=== PATIENT | female | born 1950 | race Caucasian/White ===

== ENCOUNTER 2019-01-02 08:27 | Inpatient (IN) ==
--- NOTE | 2019-01-02 09:12 | History & Physical Report ---
Date of Encounter: 01/02/19 Time of Encounter: 09:12 24 Hour HP Update - Instructions Instructions: If the History and Physical is less than 30 days old and was completed prior to A.M. admission and or procedure and has NOT been updated on calendar day of procedure please complete this update prior to performing procedure. - Update Patient reports changes in Medical Condition: No Changes in examination, assessment, or condition: No Changes in Medication: No Preop tests/diagnostics Reviewed: Yes Surgery Remains Indicated: Yes Consent for Planned Operative Procedure(s) Verified: Yes
--- NOTE | 2019-01-02 09:13 | Pre-Sedation Evaluation ---
Pre-sedation evaluation - Pre-sedation checklist Date of procedure: 01/02/19 Procedure: LHC H&P (including ROS) documented in medical record: Yes Previous reaction to sedatives/anesthetics: No Dietary Status: NPO after Midnight Dentition: dentures removed ASA Classification *see protocol: CLASS II-Mild systemic disease Cardiac Registry (Cardio Only) - Functional Capacity Functional Capacity: >=4 METS with symptoms - Clincal Frailty Scale Clinical Frailty Scale: Vulnerable
[2019-01-02] MEDS: 0.9 % Sodium Chloride 1,000 ML IVC SCH ×2 (09:20→21:36)
[2019-01-02] MEDS ORDERED: *HR* Midazolam HCl 2 MG/2 ML VIAL ONE (09:54)
[2019-01-02] MEDS ORDERED: Heparin 1,000 UNITS/500 mL 500 ML ONE (09:54)
[2019-01-02] MEDS ORDERED: *HR* Heparin 10,000 UNIT/10 ML VIAL ONE (09:54)
[2019-01-02] MEDS ORDERED: *HR* FentaNYL (PF) 100 MCG/2 ML VIAL ONE (09:54)
[2019-01-02] MEDS ORDERED: 0.9 % Sodium Chloride 1,000 ML ONE (09:54)
[2019-01-02] MEDS ORDERED: Nitroglycerin 1,000 MCG/10 ML VIAL IV ONE (09:55)
[2019-01-02] MEDS ORDERED: ISOVUE-370 200 ML INFUS..BTL ONE (09:55)
--- NOTE | 2019-01-02 09:55 | Discharge Summary ---
Outpatient Proc Discharge Plan - Plan Instructions: Left Heart Catheterization (DC) Additional Instructions: RISK FACTORS: STOP SMOKING: If you smoke, STOP. Smoking or tobacco use significantly increases your risk of heart disease because nicotine causes the arteries to narrow or constrict. It also causes fats to stick to the artery. Your chances of having a heart attack are greatly increased if you continue to smoke. For more information, call the education line for smoking cessation 3-042-DEORODM EAT A LOW FAT/CHOLESTEROL/SODIUM DIET: This diet may help reduce your chances of having a heart attack. LIFTING: Avoid lifting anything more than 10 pounds for 5-7 days Prior to straining, laughing, sneezing and/or coughing, apply manual pressure directly over insertion site. ACTIVITY: You may walk or climb stairs as tolerated You can resume sexual activity as tolerated In general, you are encouraged to engage in a minimum of 30 minutes or more of moderate intensity physical activity, such as brisk walking, daily or at least 3-4 times weekly BATHING Do not submerge the site into water (bath tub, hot tub, swimming pool) for 1 week. This can be a source for infection into the blood stream. You may shower after 24 hours SITE CARE: After 24 hours, you may remove the dressing and leave the site open to air. Keep the site clean and dry. Clean gently and pat dry. You can expect bruising and tenderness that gradually resolve within a week or two. Return to work as instructed per your physician Resume driving as instructed per physician Keep all scheduled follow up appointments Resume medications as instructed IMPORTANT: If prescribed a Platelet Aggregation Inhibitor such as, Plavix, Brilinta or Effient: Duration of therapy is minimum one year These medications are often used in combination with Aspirin in prevention of future heart attacks Never discontinue unless consult with your Road Mixer Operator STROKE (CVA) Risk factors for a stroke are: Age, cigarette smoking, diabetes, excessive alcohol consumption, family history, high blood pressure, overweight, physical inactivity, prior stroke, heart attack, diagnosis of carotid artery stenosis or other artery disease. Warning signs: Sudden numbness or weakness of the face, arm or leg; especially on one side of the body, sudden confusion, trouble speaking or understanding, sudden trouble seeing in one or both eyes, sudden trouble walking, dizziness, loss of balance or coordination, sudden severe headache with no cause. Call 911 or go to the Emergency Room. CONGESTIVE HEART FAILURE: If you have been diagnosed with Congestive Heart Failure (CHF) and your symptoms return, make an appointment with your physician Weigh yourself daily. Notify your physician if you have a weight gain of two or more pounds in one day or five or more pounds in one week. If you experience any difficulty breathing, please call 911 BLEEDING: Although the risk of bleeding is minimal, it can happen. If you have any bleeding from the site, apply firm pressure above the puncture site for 10-15 minutes. If the bleeding does not stop, continue manual pressure and call 911 Contact your physician if: You develop a fever greater than 101 degrees Fahrenheit Your site becomes reddened or has any drainage You have an increase in pain or burning at the site or if a large knot forms at the site. If you experience chest pain, shortness of breath, dizziness, or extreme tiredness, stop the activity and rest. Please notify your physicians office if you experience any of these symptoms and they are not relieved by rest please call 911! Home Medications: Aspirin 81 mg PO DAILY 04/28/17 [History] Esomeprazole Magnesium [Nexium] 40 mg PO DAILY 04/28/17 [History] Losartan Potassium [Cozaar] 50 mg PO DAILY 04/28/17 [History] Metoprolol [Lopressor] 25 mg PO BID 01/02/19 [History] Pravastatin Sodium [Pravachol] 40 mg PO DAILY 01/02/19 [History] Rosuvastatin [Crestor] 20 mg PO DAILY 01/02/19 [History] Tizanidine HCl [Zanaflex] 4 mg PO HS 01/02/19 [History]
--- NOTE | 2019-01-02 12:39 | Cardiothoracic Consult Note ---
Date of Encounter: 01/02/19 Time of Encounter: 13:25 Assessment and Plan (1) Unstable angina Current Visit: Yes Status: Acute The patient is a 68-year-old hypertensive lady with hypercholesterolemia who has had exertional substernal chest pain radiating to her neck and shoulders for the last several weeks. She underwent an exercise stress test which reproduced the symptoms early in the exercise portion. She was recommended for cardiac catheterization which she underwent today. This study revealed severe 3 vessel CAD and an LVEF 60%. In particular, the patient has a 70% proximal LAD lesion, a 95% mid LAD lesion, a 70% distal LAD lesion, a 70% distal LCx lesion, a 90% proximal OM1 lesion, a 90% proximal ramus intermediate branch lesion, and a 70% proximal RCA lesion. She has been recommended for CABG. I concur with this recommendation. The STS risk calculator reveals an operative mortality risk 1.1%, renal failure risk 0.62%, permanent stroke risk 1.38%, deep sternal wound infection risk 0.15%, and reoperation risk 1.6%. The patient understands the procedure, benefits, alternatives, and risks, and gives her informed consent. We will proceed with CABG on 01/03/2019. The assessment and plan as outlined above was discussed with the patient and/or family members who expressed understanding and agreement. All questions were answered. - History of Present Illness Consult date: 01/02/19 Requesting physician: Radha Ku Consult reason: CABG evaluation Chief complaint: Substernal chest pain History of present illness: Ms. Mark is a 68 year old hypertensive lady with hypercholesterolemia who was admitted to [facility] today for elective cardiac catheteri zation. She states that she began experiencing symptoms 6 months ago when she was mowing her lawn. At that time she had exertional, nonradiating substernal chest pain and shortness of breath with this activity. Recently, she has experienced exertional substernal chest pain radiating to her neck and shoulder regions, occasionally has had rest angina. She underwent an [facility] and had similar symptoms at 3 minutes 30 seconds. The ECG revealed [address] depression in leads 2, 3, aVF, and precordial leads V3 through V6. The patient was recommended for cardiac catheterization. The patient underwent cardiac catheterization today was found to have severe 3 vessel CAD and an LVEF 60%. In particular, the patient has a 70% proximal LAD lesion, a 95% mid LAD lesion, a 70% distal LAD lesion, a 70% distal LCx lesion, a 90% proximal OM1 lesion, a 90% proximal ramus intermediate branch lesion, and a 70% proximal RCA lesion. She has been recommended for CABG. Past Med Surg Social Fam HX - Past Medical History Medical history: COPD, coronary artery disease, GERD, hyperlipidemia, hypertension, other Additional medical history: endometriosis Psychiatric history: anxiety, depression - Past Surgical History Surgical History: appendectomy, hysterectomy, other (Right carpal tunnel release, laparoscopy with endometriosis fulgaration) Additional surgical history: colonoscopy - Social History Smoking Status: Never smoker Alcohol use: none Drug use: none Occupational status: retired Current living situation: Home - Independent Activity Level: Independent ambulation, Very active Recent Out of Country Travel Within the Last 8 Weeks: No Exposure or Possible Exposure to Illness During Travel: No Medications and Allergies Aspirin 81 mg PO DAILY 04/28/17 [History] Esomeprazole Magnesium [Nexium] 40 mg PO DAILY 04/28/17 [History] Losartan Potassium [Cozaar] 50 mg PO DAILY 04/28/17 [History] Metoprolol [Lopressor] 25 mg PO BID 01/02/19 [History] Pravastatin Sodium [Pravachol] 40 mg PO DAILY 01/02/19 [History] Rosuvastatin [Crestor] 20 mg PO DAILY 01/02/19 [History] Tizanidine HCl [Zanaflex] 4 mg PO HS 01/02/19 [History] Allergy/AdvReac Type Severity Reaction Status Date / Time magnesium Allergy See Verified 04/28/17 07:16 Comments All Systems Review: The remainder of the systems were reviewed and are negative Physical Examination Vital Signs, Last 4 Hours Temp Pulse Resp BP Pulse Ox 01/02/19 09:10 97.6 F 58 18 141/73 96 General: Conversant, No Apparent Distress HEENT: Atraumatic, Normocephaly, Trachea midline Neck: No JVD, Normal carotid pulses Cardiac: Reg Rate and Rhythm, Normal S1 and S2, No Murmur Lungs: Normal Breath Sounds, No Wheeze, Rales, Rhonchi Neuro: Alert and responsive, No focal deficits noted, Motor nerves intact, Sensory nerves intact Vascular: Normal capillary refill Abdomen: Soft, Non-tender Skin: No rashes noted on visualized skin Musculoskeletal: No Chest Wall Tenderness Extremities: No Clubbing, No Cyanosis, No Edema Consult Discharge Plan - Plan Instructions: Left Heart Catheterization (DC) Additional Instructions: RISK FACTORS: STOP SMOKING: If you smoke, STOP. Smoking or tobacco use significantly increases your risk of heart disease because nicotine causes the arteries to narrow or constrict. It also causes fats to stick to the artery. Your chances of having a heart attack are greatly increased if you continue to smoke. For more information, call the education line for smoking cessation 6-143-DVFHUFN EAT A LOW FAT/CHOLESTEROL/SODIUM DIET: This diet may help reduce your chances of having a heart attack. LIFTING: Avoid lifting anything more than 10 pounds for 5-7 days Prior to straining, laughing, sneezing and/or coughing, apply manual pressure directly over insertion site. ACTIVITY: You may walk or climb stairs as tolerated You can resume sexual activity as tolerated In general, you are encouraged to engage in a minimum of 30 minutes or more of moderate intensity physical activity, such as brisk walking, daily or at least 3-4 times weekly BATHING Do not submerge the site into water (bath tub, hot tub, swimming pool) for 1 w [place]. This can be a source for infection into the blood stream. You may shower after 24 hours SITE CARE: After 24 hours, you may remove the dressing and leave the site open to air. Keep the site clean and dry. Clean gently and pat dry. You can expect bruising and tenderness that gradually resolve within a week or two. Return to work as instructed per your physician Resume driving as instructed per physician Keep all scheduled follow up appointments Resume medications as instructed IMPORTANT: If prescribed a Platelet Aggregation Inhibitor such as, Plavix, Brilinta or Effient: Duration of therapy is minimum one year These medications are often used in combination with Aspirin in prevention of future heart attacks Never discontinue unless consult with your Finance Associate STROKE (CVA) Risk factors for a stroke are: Age, cigarette smoking, diabetes, excessive alcohol consumption, family history, high blood pressure, overweight, physical inactivity, prior stroke, heart attack, diagnosis of carotid artery stenosis or other artery disease. Warning signs: Sudden numbness or weakness of the face, arm or leg; especially on one side of the body, sudden confusion, trouble speaking or understanding, sudden trouble seeing in one or both eyes, sudden trouble walking, dizziness, loss of balance or coordination, sudden severe headache with no cause. Call 911 or go to the Emergency Room. CONGESTIVE HEART FAILURE: If you have been diagnosed with Congestive Heart Failure (CHF) and your symptoms return, make an appointment with your physician Weigh yourself daily. Notify your physician if you have a weight gain of two or more pounds in one day or five or more pounds in one week. If you experience any difficulty breathing, please call 911 BLEEDING: Although the risk of bleeding is minimal, it can happen. If you have any bleeding from the site, apply firm pressure above the puncture site for 10-15 minutes. If the bleeding does not stop, continue manual pressure and call 911 Contact your physician if: You develop a fever greater than 101 degrees Fahrenheit Your site becomes reddened or has any drainage You have an increase in pain or burning at the site or if a large knot forms at the site. If you experience chest pain, shortness of breath, dizziness, or extreme tiredness, stop the activity and rest. Please notify your physicians office if you experience any of these symptoms and they are not relieved by rest please call 911! Referrals: Skip Mathur MD [Primary Care Provider] -
[2019-01-02] MEDS ORDERED: CeFAZolin Premix DUPLEX 2,000 MG/50 ML BAG IVPB ONE (13:49)
--- NOTE | 2019-01-02 15:29 | Invasive Diagnostic Lab Proc ---
Name: Toma Mark Date of Study: 01/02/2019 Date: 1950 Ht: 67.0in Medical Record#: [id number] Age: 68 Wt: 181.88lb Gender: Female BSA: 1.94 Order #: [id number] BMI: 28.48 Physicians Procedure Physician: Radha Ku MD Referring MD: Skip Mathur MD Referring MD: Staff Name Position Time In Maeve Cruz RN Pneumatic Jack Operator 10:16 AM Erik Tomlinson RN Monitor 10:16 AM Jeannie Jack RT Scrub 10:16 AM Indications Indication Abnormal Test - Stress Procedures Performed Procedure L HRT ARTERY/VENTRICLE ANGIO Pre-Procedure Checklist Informed consent is complete signed and on chart. H&P is on chart. ID band is on and ID verified with patient. Patient NPO for procedure The procedure was described for the patient and questions were answered. Blood Pressure: 141/73 ECG is on chart. Rhythm: Sinus Bradycardia Plan of Care Patient will tolerate the procedure without complications. Adequate level of comfort will be maintained. Hemodynamics will remain stable Patient will recover from procedure without complications. Respiratory function will be maintained. Cardiac rhythm will remain stable. Patient temperature will be maintained. Patient and/or family have verbalized understanding of the procedure. Patient Education Chief Complaint/Reason for Test: Cardiac Cath Developmental Category: Geriatric (65+ years) Developmentally Appropriate for Age: Yes Learning Barriers: None Education Needs: Procedure Education Method: Verbal Information Taught: Cardiac Cath Educational Evaluation: Able to repeat information Intravenous Access Time IV Size Location DC'd Fluid/Drip Rate Units RN 09:09 AM Started with 20g 1 1/4" Rt Wrist 0.9NaCl 50 ml/hr Britta Issa RN Allergies magnesium Vital Signs Time BP (mmHg) HR (bpm) O2 Sat. RR (bpm) LOC 09:02 AM 141 / 73 58 96 % 18 5 = Fully awake and oriented or at pre-proc level 10:17 AM / % 5 = Fully awake and oriented or at pre-proc level 10:17 AM / % 4 = Oriented but drowsy 10:32 AM / % 4 = Oriented but drowsy 10:47 AM / % 4 = Oriented but drowsy 10:15 AM 164 / 81 61 98 % 32 10:19 AM 124 / 62 56 93 % 14 10:24 AM 132 / 67 55 94 % 15 10:29 AM 142 / 75 61 94 % 30 10:34 AM 126 / 60 61 90 % 38 10:39 AM 134 / 64 67 92 % 19 10:44 AM 130 / 62 61 96 % 40 10:49 AM 131 / 62 63 97 % 25 10:55 AM 146 / 72 57 100 % 25 10:59 AM 132 / 67 54 99 % 16 11:04 AM 122 / 68 55 98 % 17 11:14 AM 151 / 74 53 100 % 16 5 = Fully awake and oriented or at pre-proc level 11:30 AM 140 / 79 52 99 % 16 5 = Fully awake and oriented or at pre-proc level 12:00 PM 145 / 74 56 97 % 16 5 = Fully awake and oriented or at pre-proc level 12:35 PM 149 / 80 60 97 % 16 5 = Fully awake and oriented or at pre-proc level 01:03 PM 130 / 94 52 97 % 16 5 = Fully awake and oriented or at pre-proc level 01:13 PM 160 / 79 61 99 % 18 5 = Fully awake and oriented or at pre-proc level 01:45 PM 168 / 77 57 99 % 18 5 = Fully awake and oriented or at pre-proc level 02:00 PM 155 / 83 76 99 % 16 5 = Fully awake and oriented or at pre-proc level Procedural Medications Time Medication Dose Units Method Given By 10:16 AM Oxygen 2 L/min nasal cannula Maeve Cruz RN 10:17 AM Versed 1 mg Intravenous Maeve Cruz RN 10:17 AM Fentanyl 50 mcg Intravenous Maeve Cruz RN 10:24 AM Lidocaine 2% 19 ml Subcutaneous Radha Ku MD 10:29 AM Nitroglycerin 150 mcg Intracoronary Gideon Ku MD 10:31 AM Nitroglycerin 100 mcg Intracoronary Gideon Ku MD 10:33 AM Nitroglycerin 100 mcg Intracoronary Gideon Ku MD 10:35 AM Heparin 1000 units Intravenous Maeve Cruz RN 10:43 AM Nitroglycerin 200 mcg Intracoronary Gideon Ku MD ASA Classification: CLASS II- Mild systemic disease (i.e. well-controlled diabetes, hypertension, asthma, cigarette smoking) Turner Score Preprocedure Postprocedure Activity 2- Moves 4 extremities sustained head lift Activity 2- Moves 4 extremities sustained head lift Circulation 2- SBP +/= 20 points of pre-anesthetic level Circulation 2- SBP +/= 20 points of pre-anesthetic level Consciousness 2- Awake and alert oriented x 3 Consciousness 2- Awake and alert oriented x 3 O2 Saturation 2- Able to maintain O2 satruation of 92% on room air O2 Saturation 2- Able to maintain O2 satruation of 92% on room air Respiratory 2- Able to deep breathe and cough well Respiratory 2- Able to deep breathe and cough well Total Score 10 Total Score 10 Contrast Agent: Isovue Diagnostic Contrast: 116 ml Total Contrast: 116 ml Fluoro Dose: 7152 mGy Procedure Log Time Note Enter By 10:13 AM Vitals capture started with the following parameters, Patient=Adult, Interval=5 min, Initial Eclggwey=855 mmHg, Deflation Rate=5 mmHg, Cuff placed on Right Arm 10:13 AM Case Start 10:13 AM CathStat 10:14 AM Pt arrived to director geophysical laboratory 2 at 10:14 cedwards 10:14 AM Patient charges- Angio tray pack, Navilyst 3mm J, Pulse Oximetry and ACIST tubing and transducer cedwards 10:14 AM IV Supplies used: J loop Angio Cath. cedwards 10:14 AM Physician arrived 10:14 cedwards 10:14 AM ASA Class CLASS II- Mild systemic disease (i.e. well-controlled diabetes, hypertension, asthma, cigarette smoking) cedwards 10:14 AM Meet and greet completed cedwards 10:14 AM Sign in performed according to hospital policy. Informed consent was obtained. cedwards 10:14 AM Procedure start 10:14 cedwards 10:15 AM HR=61 bpm, WMRK=066/81 mmhg, SpO2=98.0 %, Resp=32 B/min 10:16 AM Time: 10:16 Oxygen on at 2 L/min per nasal cannula by Maeve Cruz RN cedwards 10:16 AM Maeve Cruz RN Position: Pneumatic Jack Operator Time in: 10:16 cedwards 10:16 AM Erik Tomlinson RN Position: Monitor Time in: 10:16 cedwards 10:16 AM Jeannie Jack RT Position: Scrub Time in: 10:16 cedwards 10:16 AM Time: 10:16 Patient comfortable and pain free: Yes cedwards 10:17 AM Time: 10:17LOC: 5 = Fully awake and oriented or at pre-proc level cedwards 10:17 AM Time: : Versed 1 mg Intravenous Given by Maeve Cruz RN cedwards 10: AM Time: 10: Fentanyl 50 mcg Intravenous Given by Maeve Cruz RN cedwards 10: AM Recorded ECG: HR=55 Condition=Condition 1 10:17 AM Recorded ECG: HR=55 Condition=Condition 1 10:18 AM Hair removed from procedure site in holding area using clippers. Bilateral groin prepped with Chloraprep by Erik Tomlinson RN, then patient was draped. Skin intact. cedwards 10:19 AM HR=56 bpm, VDFE=103/62 mmhg, SpO2=93.0 %, Resp=14 B/min, EtCO2=40 mmHg, Comment=NSR 10:24 AM Clinical Presentation: Unstable angina cedwards 10:24 AM Time out was performed according to hospital policy. Conscious sedation and anesthesia was achieved (see medication log with in this report above) cedwards 10:24 AM HR=55 bpm, HEZU=131/67 mmhg, SpO2=94.0 %, Resp=15 B/min, EtCO2=35 mmHg, Comment=NSR 10: AM Time: : 19 ml Lidocaine 2% to right groin Subcutaneous Given by Radha Ku MD cedwards 10:25 AM Micro-Introducer Kit utilized for sheath placement cedwards 10:26 AM Access obtained by percutaneous puncture. 6Fr 10cm Terumo [place] sheath placed in right Femoral artery. [id number] cedwards 10:26 AM 5Fr FR 4 catheter inserted over the wire [facility] cedwards 10:26 AM 0.035 145cm Navilyst 3mmJ wire [id number] cedwards 10:28 AM Recorded Pressure: Ao, HR=57, Condition=Condition 1 (Aorta) Ao 142/66/95 10:28 AM RCA angiography performed in multiple views. cedwards 10:28 AM Recorded Pressure: Ao, HR=60, Condition=Condition 1 (Aorta) Ao 71/33/48 10:29 AM HR=61 bpm, JFLS=339/75 mmhg, SpO2=94.0 %, Resp=30 B/min, EtCO2=40 mmHg 10: AM Time: : Nitroglycerin 150 mcg Intracoronary Given by Gideon Ku MD cedwards 10:31 AM Time: 10:31 Nitroglycerin 100 mcg Intracoronary Given by Gideon Ku MD cedwards 10:32 AM Time: 10:16 Patient comfortable and pain free: Yes cedwards 10:32 AM Time: 10:17LOC: 4 = Oriented but drowsy cedwards 10:33 AM Time: 10:33 Nitroglycerin 100 mcg Intracoronary Given by Gideon Ku MD ced[place] 10:33 AM Catheter removed cedwards 10:34 AM 5Fr FL 4 catheter inserted over the wire [facility] cedwards 10:34 AM HR=61 bpm, AVNJ=091/60 mmhg, SpO2=90.0 %, Resp=38 B/min 10:35 AM Recorded Pressure: Ao, HR=64, Condition=Condition 1 (Aorta) Ao 129/68/95 10:36 AM Time: 10:35 Heparin 1000 units Intravenous Given by Maeve Cruz RN cedwards 10:36 AM LCA angiography performed in multiple views. cedwards 10:37 AM Recorded Pressure: Ao, HR=51, Condition=Condition 1 (Aorta) Ao 127/71/95 10:38 AM Catheter removed cedwards 10:38 AM Coronary Dominance: right cedwards 10:38 AM 5Fr Pigtail catheter inserted over the wire [facility] cedwards 10:39 AM Catheter crossed the aortic valve and was selectively placed in the left ventricle. Pressures recorded on pullback for left heart catheterization. cedwards 10:39 AM HR=67 bpm, KBAR=177/64 mmhg, SpO2=92.0 %, Resp=19 B/min 10:39 AM Bolus angiogram of left Ventricle complete: 10 ml/sec for a total of 20 mls cedwards 10:40 AM Recorded Pressure: LV, HR=70, Condition=Condition 1 (Left Ventricle) LV 153/27/22 10:40 AM Recorded Pressure: LV, Ao, HR=62, Condition=Condition 1 (Left Ventricle) LV 128/20/26, (Aorta) Ao 118/6/64 10:41 AM Catheter removed cedwards 10:41 AM 5Fr SRC catheter inserted over the wire [id number] cedwards 10:42 AM Recorded Pressure: Ao, HR=65, Condition=Condition 1 (Aorta) Ao 127/72/97 10:43 AM Time: 10:43 Nitroglycerin 200 mcg Intracoronary Given by Gideon Ku MD cedwards 10:44 AM HR=61 bpm, THMX=604/62 mmhg, SpO2=96.0 %, Resp=40 B/min 10:47 AM Time: 10:32LOC: 4 = Oriented but drowsy cedwards 10:47 AM Time: 10:32 Patient comfortable and pain free: Yes cedwards 10:49 AM HR=63 bpm, BHGW=290/62 mmhg, SpO2=97.0 %, Resp=25 B/min, EtCO2=35 mmHg, Comment=NSR 10:[address] Shay paged for CABG consult cedwards 10:50 AM Lesion found in Proximal RCA. Pre Stenosis: 70 Pre JEZ Flow: 3: Complete and Brisk Flow/Perfusion cedwards 10:51 AM Lesion found in Proximal LAD. Pre Stenosis: 70 Pre JEZ Flow: 3: Complete and Brisk Flow/Perfusion cedwards 10:51 AM Lesion found in Mid LAD. Pre Stenosis: 95 Pre JEZ Flow: 3: Complete and Brisk Flow/Perfusion cedwards 10:51 AM Lesion found in Distal LAD. Pre Stenosis: 70 Pre JEZ Flow: 3: Complete and Brisk Flow/Perfusion cedwards 10:52 AM Lesion found in Distal Circumflex. Pre Stenosis: 70 Pre JEZ Flow: 3: Complete and Brisk Flow/Perfusion cedwards 10:52 AM Lesion found in 1st Marginal. Pre Stenosis: 90 Pre JEZ Flow: 3: Complete and Brisk Flow/Perfusion cedwards 10:52 AM Lesion found in Ramus. Pre Stenosis: 90 Pre JEZ Flow: 3: Complete and Brisk Flow/Perfusion cedwards 10:55 AM HR=57 bpm, YGXT=081/72 mmhg, SdP3=991.0 %, Resp=25 B/min, Comment=NSR 10:55 AM Catheter removed cedwards 10:56 AM Procedure completed at 10:56 01/02/2019 cedwards 10:56 AM Did you address JEZ flow and Dominance? Yes cedwards 10:56 AM Sign out completed: Radiation Dose 679.62 mGy, 7151.90 cGy/cm2 Fluoro Time: 6.8 Isovue 370 - 200ml contrast 116 ml given by Radha Ku MD. Complications: None. The patient was discharged out of the rd lab technician in stable condition. Cardiac Rehab Consult needed: YesConfirmed administered medications: Yes cedwards 10:56 AM Isovue 370 - 200ml,1 Bottle(s) used. cedwards 10:57 AM Arterial sheath pulled, Mynx closure device used and was Successful [id number] S/N. cedwards 10:57 AM Estimated Blood Loss: minimal cedwards 10:57 AM Post ECG NSR cedwards 10:57 AM Post Blood Pressure 146/72 cedwards 10:57 AM Information taught Cardiac Cath and Mynx cedwards 10:57 AM Education needs Plan of Care, Procedure, and Disease Process cedwards 10:57 AM Learning barriers :None cedwards 10:57 AM Education Methods Verbal cedwards 10:57 AM Education evaluation Able to repeat information cedwards 10:57 AM Site status No bleeding/hematoma - Rt Groin as reported by Gideon Ku MD at 10:57 cedwards 10:57 AM Opsite applied cedwards 10:57 AM Plavix, Effient or Brilinta given No cedwards 10:59 AM HR=54 bpm, LYSB=458/67 mmhg, SpO2=99.0 %, Resp=16 B/min, Comment=NSR 11:02 AM Time: 10:47 Patient comfortable and pain free: Yes cedwards 11:02 AM Time: 10:47LOC: 4 = Oriented but drowsy cedwards 11:[address] Shay in lab viewing films discussing with Dr. Ku cedwards 11:03 AM Family placed in consult room. cedwards 11:03 AM Complications: None cedwards 11:04 AM HR=55 bpm, BBMD=403/68 mmhg, SpO2=98.0 %, Resp=17 B/min, Comment=NSR 11:06 AM Report given to Madelyn COLBY Pt taken to Holding room Room #3. 11:06 cedwards 11:16 AM checked into HR 3, family at bedside [email or web address] 01:[address] shay at bedside [email or web address] 01:47 PM Patient ambulated with assistance to BR. Insertion site without bleeding or hematoma. Pulses unchanged. [email or web address] 02:26 PM Activity: 2 Circulation: 2 Consciousness: 2 O2 Saturation: 2 Respiration: 2 [email or web address] 02:26 PM Report given to Rosemary COLBY Pt taken to Room #38. 14:26 [email or web address] 02:26 PM LASHA Limon at bedside doing open heart education [email or web address] 03:23 PM pt taken to 3B via wheelchair by Erik, RN and LASHA Salazar [email or web address] Complications Complication None None Hemodynamics Pressures Site Systolic/A Wave Diastolic/V Wave Mean AO 142 66 95 AO 71 33 48 AO 129 68 95 AO 127 71 95 LV 153 27 22 LV 128 20 26 AO 118 6 64 AO 127 72 97 Post Procedure Information Blood Pressure: 146/72 mmHg Rhythm: NSR Post procedural instructions were given Surgery consult for CABG Closure Device Time Device Success/Fail 01/02/2019 11:12:00 AM MynxGrip Successful Site Checks Time Location Status Staff Sheath In? Note 10:57 AM Rt Groin No bleeding/hematoma Gideon Ku MD 11:14 AM Rt Groin No bleeding/ No Hematoma Alyssa Mathews RN 11:30 AM Rt Groin No bleeding/ No Hematoma Britta Issa RN 12:00 PM Rt Groin No bleeding/ No Hematoma Alyssa Mathews RN 12:35 PM Rt Groin No bleeding/ No Hematoma Britta Issa RN 01:03 PM Rt Groin No bleeding/ No Hematoma Alyssa Mathews RN 01:13 PM Rt Groin No bleeding/ No Hematoma Britta Issa RN 01:45 PM Rt Groin No bleeding/ No Hematoma Britta Issa RN 02:00 PM Rt Groin No bleeding/ No Hematoma Alyssa Mathews RN Pulses Time Site Pre-Procedure Post-Procedure Note 01/02/2019 9:06:00 AM Bilateral DP & PT 2+ 01/02/2019 9:06:00 AM Bilateral radial 2+ 01/02/2019 12:09:00 PM Bilateral DP & PT 2+ 01/02/2019 12:35:00 PM Bilateral DP & PT 2+ Updated by Alyssa Mathews RN on 01/02/2019 3:23:23 PM electronically signed on 01/02/2019 3:24:05 PM with status of Final
[2019-01-02 16:52] LABS: Chol/HDL Ratio 3.1 (0-4.9)
[2019-01-02 16:56] LABS: Estimated Average Glucose 123 mg/dl; Hemoglobin A1C 5.9 %
[2019-01-02] MEDS: Chlorhexidine Rinse 15 ML MOUTHWASH MM SCH (21:29)
[2019-01-03] MEDS: Nitroglycerin 0.4 MG TAB.SUBL SL PRN ×2 (01:37→01:43)
[2019-01-03] MEDS ORDERED: Aspirin 81 MG TAB.CHEW PO ONE (06:00)
[2019-01-03] MEDS: Chlorhexidine Rinse 15 ML MOUTHWASH MM SCH (06:07)
[2019-01-03] MEDS ORDERED: Nitroglycerin 25 MG/250 ML INFUS..BTL IVC ONE (06:50)
[2019-01-03] MEDS ORDERED: *HR* FentaNYL (PF) 1,000 MCG/20 ML VIAL ONE (06:52)
[2019-01-03] MEDS ORDERED: *HR* Midazolam HCl 5 MG/5 ML VIAL IVP ONE (06:52)
[2019-01-03] MEDS ORDERED: *HR* Propofol 200 MG/20 ML VIAL IVP ONE (06:52)
[2019-01-03] MEDS ORDERED: *HR* EPINEPHrine 1 MG/ML AMPUL ONE (06:54)
[2019-01-03] MEDS ORDERED: *HR* PHENYLEPHRINE 1,000 MCG/10 ML SYRINGE IVP ONE (06:54)
[2019-01-03] MEDS ORDERED: Famotidine 20 MG/2 ML VIAL ONE (06:54)
[2019-01-03] MEDS ORDERED: *HR* Magnesium Sulfate 1 GM/2 ML VIAL ONE (06:54)
[2019-01-03] MEDS ORDERED: Lidocaine 2% Syringe 100 MG/5 ML ONE (07:02)
[2019-01-03] MEDS ORDERED: Dexamethasone 4 MG/ML VIAL ONE (07:02)
--- NOTE | 2019-01-03 07:17 | Anesthesia Evaluation PreOp ---
Date of Encounter: 01/03/19 Time of Encounter: 07:23 - Past History Planned Operation: CABG Cardiac History: HTN, Hyperlipidemia, Other (CAD) Pulmonary History: Other (chronic cough with unknown etiology) BOAT TESTER History: Denies Any Significant HX Other Medical History: Denies Any Significant HX Anesthesia History: Past Anesthesia (apy, hysterectomy) : No Alcohol Use: none Drug use: none Medications and Allergies Aspirin 81 mg PO DAILY 04/28/17 [History] Esomeprazole Magnesium [Nexium] 40 mg PO DAILY 04/28/17 [History] Losartan Potassium [Cozaar] 50 mg PO DAILY 04/28/17 [History] Metoprolol [Lopressor] 25 mg PO BID 01/02/19 [History] Pravastatin Sodium [Pravachol] 40 mg PO DAILY 01/02/19 [History] Rosuvastatin [Crestor] 20 mg PO DAILY 01/02/19 [History] Tizanidine HCl [Zanaflex] 4 mg PO HS 01/02/19 [History] Allergy/AdvReac Type Severity Reaction Status Date / Time magnesium Allergy See Verified 04/28/17 07:16 Comments - Meds/Allergy Pre-op Review Medications Reviewed: Yes Allergies Reviewed: Yes Beta Blockers on Current Med List: Yes (metoprolol) If Beta Blockers taken, Date/Time (Last Dose taken): 604 Anesthesia Results - Labs Laboratory Tests 12/30/18 12/30/18 12/30/18 16:56 16:56 16:56 WBC 9.1 Hgb 14.5 Hct 43.9 Plt Count 370 PT 10.8 INR 1.0 Sodium 137 Potassium 3.9 Chloride 99 Carbon Dioxide 25 BUN 13 Creatinine 0.82 Est GFR (Non-Af Amer) > 60 Hemoglobin A1c 01/02/19 16:18 WBC Hgb Hct Plt Count PT INR Sodium Potassium Chloride Carbon Dioxide BUN Creatinine Est GFR (Non-Af Amer) Hemoglobin A1c 5.9 H - Imaging EKG: report reviewed Additional studies: [facility] 01/02/2019 severe 3 vessel CAD and an LVEF 60%. In particular, the patient has a 70% proximal LAD lesion, a 95% mid LAD lesion, a 70% distal LAD lesion, a 70% distal LCx lesion, a 90% proximal OM1 lesion, a 90% proximal ramus intermediate branch lesion, and a 70% proximal RCA lesion. PFT 08/2018 Adequate for Interpretation Spirometry shows moderate airway restrictive disease. If clinically indicated to confirm restriction full lung volumes and diffusion to be done at a later date. Lung Volumes SVC is moderately reduced. Flow Volume Loop: Normal. Anesthesia Exam Vital Signs/O2 Sat/Glucose, Most Recent Temp Pulse Resp BP Pulse Ox 98.1 F 62 16 150/74 96 01/03/19 06:55 01/03/19 06:55 01/03/19 06:55 01/03/19 06:55 01/03/19 06:55 NPO (# of Hours): > 8 hr - HEENT Pupil (Motor): Pupils equal Mallampati: III Teeth: Missing (full top), Prosthesis (metal lower teeth) Oral Opening: Greater than 3 - BOAT TESTER LOC: Oriented BOAT TESTER Motor: Normal RUE, Normal LUE, Normal RLE, Normal LLE, Normal Face BOAT TESTER Sensory: Normal: RUE, LUE, RLE, LLE, Face - Cardiac Rhythm: Regular Murmur: None - Pulmonary Breath Sounds: bilateral Clear Respiratory Effort: Symmetrical Anesthesia Assess/Plan ASA Score: 4 Level of consciousness: Cooperative, Oriented Anesthetic Plan: General Monitoring Plan: Standard Monitors, A-Line, PAC, DANNY Recovery Plan: ICU
[2019-01-03] MEDS ORDERED: Dextrose 50 % in Water (Vial) 30 ML, Sodium Bicarbonate 20 MEQ, Lidocaine 1% 5 ML, Insu... TH ONE ×2 (07:45→17:45)
[2019-01-03] MEDS ORDERED: Dextrose 50 % in Water (Vial) 30 ML, Sodium Bicarbonate 20 MEQ, Potassium Chloride 15 M... TH ONE (07:45)
[2019-01-03] MEDS ORDERED: Heparin 15,000 UNIT in 0.9 % Sodium Chloride 500 ML IV ONE (07:45)
[2019-01-03] MEDS ORDERED: Insulin Human Regular 100 UNIT in 0.9 % Sodium Chloride 100 ML IV PRN (07:45)
[2019-01-03] MEDS ORDERED: Norepinephrine 4 MG in D5% in Water 250 ML IVC PRN (07:45)
[2019-01-03] MEDS ORDERED: *HR* Phenylephrine 10 MG/ML VIAL IVC ONE (08:16)
[2019-01-03] MEDS ORDERED: Lidocaine 2% Syringe 100 MG/5 ML IV ONE (08:16)
[2019-01-03] MEDS ORDERED: *HR* Heparin 10,000 UNIT/10 ML VIAL IV ONE (08:16)
[2019-01-03] MEDS ORDERED: Tranexamic Acid 1,000 MG/10 ML VIAL IVPB ONE (08:16)
[2019-01-03] MEDS ORDERED: Mannitol 25% vial 12.5 GM/50 ML VIAL IVP ONE (08:16)
[2019-01-03] MEDS ORDERED: Albumin Human 25% 25 GM/100 ML IV.SOLN IV ONE (08:16)
[2019-01-03 08:21] LABS: ABG Base Excess -2 mEq/L (-2 to 3); ABG Chloride 107 mEq/L (98-107); ABG Glucose 106 mg/dL (60-95); ABG HCO3 25 mEq/L (21-27); ABG Ionized Calcium 1.24 mmol/L (1.15-1.35); ABG Oxygen Saturation 100 % (95-98); ABG PCO2 46 mmHg (35-45); ABG PH 7.34 pH Units (7.32-7.45); ABG PO2 276 mmHg (85-104); ABG TCO2 26 mEq/L (20-26)
[2019-01-03] MEDS ORDERED: Albumin Human 5% 50.0 GM/1,000 ML VIAL ONE (08:40)
[2019-01-03] MEDS ORDERED: *HR* Rocuronium Bromide 50 MG/5 ML VIAL ONE ×3 (09:14→11:31)
[2019-01-03 09:15] LABS: ABG Base Excess -3 mEq/L (-2 to 3); ABG Chloride 108 mEq/L (98-107); ABG Glucose 109 mg/dL (60-95); ABG HCO3 22 mEq/L (21-27); ABG Ionized Calcium 1.19 mmol/L (1.15-1.35); ABG Oxygen Saturation 100 % (95-98); ABG PCO2 36 mmHg (35-45); ABG PH 7.38 pH Units (7.32-7.45); ABG PO2 278 mmHg (85-104); ABG TCO2 23 mEq/L (20-26)
[2019-01-03] MEDS ORDERED: Protamine Sulfate 250 MG/25 ML VIAL IVP ONE (09:28)
--- NOTE | 2019-01-03 09:32 | Anesthesia Procedures ---
Date of Encounter: 01/03/19 Time of Encounter: 07:50 Procedures: Anesthesia - Arterial Line Consent obtained: written consent Time out performed: Yes Sedation: Versed (mg): 3 Sedation: Fentanyl (mcg): 50 Local Anesthetic: Lidocaine 1% Size (Gauge): 20 Length (inches): 1 3/4 Technique Used: sterile prep, direct puncture technique Post-Procedure: line taped into place, dry sterile dressing placed Patient tolerated procedure: well, no complications Complications: none Site: Radial L Vitals: see anesthesia chart - Central Line Placement Right IJ Consent obtained: written consent Time out performed: Yes Patient placed on monitor/pulse ox: Yes Supplemental Oxygen via Nasal Cannula (L/min): 6 (through ETT) MD prep: mask, gown, gloves Central line prep: Chlorhexidine scrub Ultrasound used for placement: Yes Technique: Seldinger Lumen Inserted: single Size / Length: 9 Fr / 10 cm Post procedure: sutured in place, good blood return, sterile dressing applied Patient tolerated procedure: well, no complications Complications: none Vitals: see anesthesia chart Comments: PAC inserted with pressure waveform analysis. Secured at 45 cm
[2019-01-03 10:13] LABS: ABG Base Excess -2 mEq/L (-2 to 3); ABG Chloride 102 mEq/L (98-107); ABG Glucose 176 mg/dL (60-95); ABG HCO3 23 mEq/L (21-27); ABG Ionized Calcium 0.97 mmol/L (1.15-1.35); ABG Oxygen Saturation 100 % (95-98); ABG PCO2 40 mmHg (35-45); ABG PH 7.37 pH Units (7.32-7.45); ABG PO2 621 mmHg (85-104); ABG TCO2 24 mEq/L (20-26)
[2019-01-03] MEDS ORDERED: Protamine Sulfate 50 MG/5 ML VIAL IVP ONE (10:58)
[2019-01-03 11:07] LABS: ABG Base Excess 0 mEq/L (-2 to 3); ABG Chloride 104 mEq/L (98-107); ABG Glucose 142 mg/dL (60-95); ABG HCO3 24 mEq/L (21-27); ABG Ionized Calcium 1.24 mmol/L (1.15-1.35); ABG Oxygen Saturation 100 % (95-98); ABG PCO2 36 mmHg (35-45); ABG PH 7.44 pH Units (7.32-7.45); ABG PO2 585 mmHg (85-104); ABG TCO2 25 mEq/L (20-26)
[2019-01-03] MEDS ORDERED: *HR* FentaNYL (PF) 250 MCG/5 ML VIAL ONE (11:31)
[2019-01-03 11:56] LABS: ABG Base Excess 0 mEq/L (-2 to 3); ABG Chloride 103 mEq/L (98-107); ABG Glucose 138 mg/dL (60-95); ABG HCO3 24 mEq/L (21-27); ABG Ionized Calcium 1.04 mmol/L (1.15-1.35); ABG Oxygen Saturation 100 % (95-98); ABG PCO2 38 mmHg (35-45); ABG PH 7.41 pH Units (7.32-7.45); ABG PO2 310 mmHg (85-104); ABG TCO2 26 mEq/L (20-26)
--- NOTE | 2019-01-03 12:01 | Operative Note ---
Date of procedure: 01/03/19 Pre-op diagnosis: CAD Post-op diagnosis: same Procedure: 1. CABG5 (CORCORAN to LAD, SVG to D1, sequential SVG to ramus intermediate branch and then OM1, SVG to distal RCA). 2. Endoscopic vein harvesting, greater saphenous vein from left lower extremity. Implants: None. Complications: None. Anesthesia: GETA Surgeon: Samantha Shay Was there an diversional therapist's assistant present: Yes Guitar Technician: Vikram Zendejas Estimated blood loss (cc): 500 Specimen: None. Condition: stable Disposition: ICU Procedure in Detail: INDICATIONS FOR OPERATION: The patient is a 68 year old hypertensive lady with hypercholesterolemia who was admitted to [facility] today for elective cardiac catheterization. She states that she began experiencing symptoms 6 months ago when she was mowing her lawn. At that time she had exertional, nonradiating substernal chest pain and shortness of breath with this activity. Recently, she has experienced exertional substernal chest pain radiating to her neck and shoulder regions, occasionally has had rest angina. She underwent an exercise stress test at [facility] and had similar symptoms at 3 minutes 30 seconds. The ECG revealed [address] depression in leads 2, 3, aVF, and precordial leads V3 through V6. The patient was recommended for cardiac catheterization. The patient underwent cardiac catheterization today was found to have severe 3 vessel CAD and an LVEF 60%. In particular, the patient has a 70% proximal LAD lesion, a 95% mid LAD lesion, a 70% distal LAD lesion, a 70% distal LCx lesion, a 90% proximal OM1 lesion, a 90% proximal ramus intermediate branch lesion, and a 70% proximal RCA lesion. She has been recommended for CABG. FINDINGS AT OPERATION: The aorta was of normal caliber without calcification. The coronary arteries measure approximately 1.5 mm in diameter and had mild distal disease, except the distal LAD which was small and diffusely diseased. The greater saphenous vein w as harvested endoscopically from the left lower extremity from the mid-calf to the groin and was of good quality. The total bypass time was 108 minutes, cross-clamp time 59 minutes, intentional hypothermia of 34.1 degrees centigrade. DESCRIPTION OF OPERATION: After obtaining informed operative consent from the patient, she was taken to the operating room where a satisfactory general endotracheal anesthetic was induced. Appropriate monitor lines placed, and the patient's chest, abdomen, and lower extremities were prepped and draped in a sterile fashion. The greater saphenous vein was harvested endoscopically from the left lower extremity from the mid calf to the groin. The vein was removed, distended, and found to be of good quality. The subcutaneous tissue and skin edges were reapproximated using running Vicryl sutures. Simultaneously, a standard median sternotomy incision was made and the sternum divided. The CORCORAN was taken down from its bed and side branches divided between hemoclips. The sternum was and the pericardium opened and reflected laterally. The patient was prepared for cannulation by placing pursestring sutures the distal ascending aorta, mid-ascending aorta, and right atrial appendage. The patient was heparinized and when he used to is greater than 200 seconds, the distal ascending aorta was cannulated followed by placement of a dual stage venous cannula through the right atrial appendage and into the inferior vena cava. A stab-in antegrade metabolic annual was placed in the mid- ascending aorta. The patient was placed on bypass and the temperature allowed to drift to 34.1 degrees centigrade. The distal targets were identified and the aorta was crossclamped. She received 700 mL of cold antegrade crystalloid cardioplegia through the aortic root and the patient's heart obtained rapid diastolic arrest. The distal RCA was opened be blade and the vein was anastomosed in an end-to-side fashion using running 7-0 Prolene suture. The anastomosis found to be hemostatic. This process was then repeated for the D1 branch. The anastomosis found to be hemostatic and the patient received a notice of cold ant egrade crystalloid cardioplegia through the aortic root. The OM1 branch was opened with a [place] blade and the vein was anastomosed in an end-to-side fashion using running 7-0 Prolene suture. The anastomosis found to be hemostatic. The D1 branch was opened be blade and the vein was opened longitudinal fashion so the [id number] anastomosis could be completed using running 7-0 Prolene suture. The anastomosis was found to be hemostatic and the patient received a final dose of cold antegrade crystalloid cardioplegia through the aortic root. The LAD was opened be blade and the CORCORAN was anastomosed in an end-to-side fashion to the LAD using running 7-0 Prolene suture. The anastomosis was found to be hemostatic and the mammary pedicle was tacked to the epicardium using interrupted 5-0 silk suture. Rewarming was begun during this anastomosis. Cross-clamp was released and the heart distended. The veins were measured and cut appropriate lengths. A partial occluding clamps placed across the mid- ascending aorta and the antegrade cardioplegia cannula was removed. Two additional aortotomy sites were made 11 blade and all 3 sites were enlarged with 4 mm punch. The veins were anastomosed in end-to-side fashion to the aorta using a running 5-0 Prolene suture. The vein grafts were occluded with bulldog clamps and de-aired the 25-gauge needle prior to the partial occluding clamp. The proximal and distal anastomoses were found to be hemostatic and the proximal anastomoses were marked with radiopaque loops. Two right ventricular temporary epicardial pacing lesion placed, and 3 chest suture placed, 2 in the mediastinum and one into the left pleural space. During rewarming the patient's heart rhythm deteriorated to ventricular fibrillation and she required a single 10 J direct-current shock and heart regained normal sinus rhythm. When the patient's systemic temperature reached 36 degrees centigrade she was ventilated and received volume. She was weaned from bypass and required no inotropic support. The pericardium was loosely approximated over the aorta; however, could not be reapproximated over the right ventricle due to excessive tension. The sternum was reapproximated using sternal wires. 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 This was not replaced as the remaining sternum was stable. The pectoralis major fascia, rectus abdominis fascia, subcutaneous tissue, and skin edges were reapproximated running Vicryl sutures. A negative pressure sterile dressing was applied to the sternotomy incision. The patient was transferred to the ICU in satisfactory postoperative condition. There were no intraoperative complications, and the instrument, needle, and sponge count were correct at the end of operation. - Open Heart Detail DELMIS (Internal Mammary Artery) Usage: Yes Cardiopulmonary Bypass Time (mins): 108 Aortic Cross Clamp Time (mins): 59 Intentional Hypothermia Temperature (C.): 34.1
[2019-01-03] MEDS ORDERED: Potassium Chloride 40 MEQ/200 ML BAG IVPB PRN (12:32)
[2019-01-03] MEDS ORDERED: *HR* Dextrose 50 % in Water (Syg) 50 ML SYRINGE IVP PRN (12:32)
[2019-01-03] MEDS ORDERED: Insulin Regular, Human 100 UNIT/ML IV PRN (12:32)
[2019-01-03] MEDS ORDERED: Naloxone 0.4 MG/ML INJ IVP PRN (12:33)
[2019-01-03] MEDS ORDERED: Ondansetron 4 MG/2 ML VIAL IVP PRN (12:33)
[2019-01-03] MEDS ORDERED: Acetaminophen 325 MG TABLET PO PRN (12:33)
[2019-01-03] MEDS ORDERED: Calcium Chloride 1,000 MG in 0.9 % Sodium Chloride 100 ML IVPB PRN (12:33)
[2019-01-03] MEDS ORDERED: Acetaminophen 650 MG RECTAL SUPP RC PRN (12:33)
[2019-01-03] MEDS ORDERED: Pantoprazole 40 MG VIAL IVP SCH (12:45)
[2019-01-03] MEDS ORDERED: Insulin Human Regular 100 UNIT in 0.9 % Sodium Chloride 100 ML IVC SCH (12:45)
[2019-01-03] MEDS ORDERED: Norepinephrine 4 MG in D5% in Water 250 ML IVC SCH (12:45)
[2019-01-03 12:55] LABS: ABG Base Excess 1 mEq/L (-2 to 3); ABG HCO3 24 mEq/L (21-27); ABG Oxygen Saturation 99 % (95-98); ABG PCO2 32 mmHg (35-45); ABG PH 7.49 pH Units (7.32-7.45); ABG PO2 103 mmHg (85-104); ABG TCO2 25 mEq/L (20-26); Blood Gas Modality VC; Blood Gas PEEP 5 cm H2O; Blood Gas Respiration Rate 10; Blood Gas VT 600 cc
[2019-01-03 13:04] LABS: Basophils % 0.2 %; Eosinophils # 0.2 K/mcL (0.0-0.6); Eosinophils % 0.8 %; Hematocrit 33.9 % (35.3-44.9); Immature Granulocytes % 0.7 % (0-4); Lymphocytes # 1.2 K/mcL (0.6-4.6); Lymphocytes % 5.9 %; Mean Corpuscular HGB Conc 33.9 g/dL (31.6-35.5); Mean Corpuscular Hemoglobin 29.9 pg (28.0-33.3); Mean Corpuscular Volume 88.3 fL (83.0-100.0); Mean Platelet Volume 10.2 fL (9.4-12.4); Monocytes % 6.1 %; Neutrophils # 17.6 K/mcL (1.6-8.9); Platelet Count 180 K/mcL (140-400); Red Blood Count 3.84 M/mcL (3.82-4.97); Segmented Neutrophils % 86.3 %
[2019-01-03 13:06] LABS: Hemoglobin 11.5 g/dL (11.5-15.4); Monocytes # 1.2 K/mcL (0.0-1.3)
[2019-01-03 13:18] LABS: BUN/Creatinine Ratio 15 (6-26); Blood Urea Nitrogen 10 mg/dL (8-23); Calcium 7.7 mg/dL (8.6-10.3); Carbon Dioxide 24 mEq/L (23-29); Chloride 108 mEq/L (98-107); Glucose 141 mg/dL (70-105); Osmolality,Calculated 287 (280-300); Potassium 3.7 mEq/L (3.5-5.1); Sodium 138 mEq/L (136-145); eGFR For Non-African Americans > 60 (> 60)
[2019-01-03 13:22] LABS: INR 1.2
[2019-01-03 13:24] LABS: Activated Partial Thrombo Time 31.6 Seconds (26.0-36.0)
[2019-01-03] MEDS: *HR* FentaNYL (PF) 100 MCG/2 ML VIAL IVP PRN ×6 (13:51→22:35)
[2019-01-03] MEDS: 0.9 % Sodium Chloride w KCl 20 MEQ/1,000 ML MLS IVC SCH (13:52)
--- NOTE | 2019-01-03 14:01 | Anesthesia Evaluation Post Op ---
Date of Encounter: 01/03/19 Time of Encounter: 14:00 - Vital Signs Vital Signs: Vital Signs/O2 Sat/Glucose, Most Recent Temp Pulse Resp BP Pulse Ox 98.1 F 62 10 128/64 100 01/03/19 06:55 01/03/19 06:55 01/03/19 13:12 01/03/19 13:12 01/03/19 13:12 - Lungs Lungs: Clear Ascult./Percussion - Airway Airway: Intubated - Cardiovascular Regular Rate - Mental Status Mental Status: Alert & Oriented, Answers Appropriately - Pain Pain Scale used: Unable to assess - Nausea Vomiting Nausea Vomiting: Not Present - Hydration Hydration: NPO - Discharge Attestation: patient in ICU and remains hemodynamically stable and intubated.
[2019-01-03 16:29] LABS: ABG Base Excess 1 mEq/L (-2 to 3); ABG HCO3 26 mEq/L (21-27); ABG Oxygen Saturation 98 % (95-98); ABG PCO2 41 mmHg (35-45); ABG PH 7.41 pH Units (7.32-7.45); ABG PO2 112 mmHg (85-104); ABG TCO2 27 mEq/L (20-26); Blood Gas Modality VC; Blood Gas PEEP 5 cm H2O; Blood Gas Pressure Support 10 cm H2O
[2019-01-03] MEDS: Metoclopramide 10 MG/2 ML VIAL IVP SCH (16:45)
[2019-01-03 17:25] LABS: ABG Base Excess 3 mEq/L (-2 to 3); ABG HCO3 28 mEq/L (21-27); ABG Oxygen Saturation 97 % (95-98); ABG PCO2 44 mmHg (35-45); ABG PH 7.41 pH Units (7.32-7.45); ABG PO2 90 mmHg (85-104); ABG TCO2 29 mEq/L (20-26)
[2019-01-03 17:45] LABS: Basophils % 0.1 %; Hemoglobin 12.9 g/dL (11.5-15.4); Immature Granulocytes % 0.9 % (0-4); Lymphocytes # 0.8 K/mcL (0.6-4.6); Lymphocytes % 3.8 %; Mean Corpuscular HGB Conc 33.9 g/dL (31.6-35.5); Mean Corpuscular Hemoglobin 30.1 pg (28.0-33.3); Mean Corpuscular Volume 88.8 fL (83.0-100.0); Mean Platelet Volume 10.7 fL (9.4-12.4); Monocytes # 1.4 K/mcL (0.0-1.3); Monocytes % 7.1 %; Neutrophils # 17.6 K/mcL (1.6-8.9); Platelet Count 224 K/mcL (140-400); Red Blood Count 4.28 M/mcL (3.82-4.97); Red Cell Distribution Width 12.2 % (11.5-14.5); Segmented Neutrophils % 88.1 %
[2019-01-03 17:57] LABS: BUN/Creatinine Ratio 19 (6-26); Blood Urea Nitrogen 12 mg/dL (8-23); Calcium 8.5 mg/dL (8.6-10.3); Carbon Dioxide 25 mEq/L (23-29); Chloride 108 mEq/L (98-107); Glucose 139 mg/dL (70-105); Osmolality,Calculated 288 (280-300); Sodium 138 mEq/L (136-145); eGFR For Non-African Americans > 60 (> 60)
[2019-01-03] MEDS: niCARdipine 40 MG/200 ML MLS IVC SCH ×2 (19:29→23:11)
[2019-01-03] MEDS: Nitroglycerin 25 MG/250 ML INFUS..BTL IVC SCH ×2 (19:30→19:46)
[2019-01-03] MEDS ORDERED: Chlorhexidine Rinse 15 ML MOUTHWASH MM SCH (21:00)
[2019-01-03] MEDS: *HR* OxyCODONE/APAP 5/325 TABLET PO PRN (22:05)
--- NOTE | 2019-01-03 23:43 | Electrocardiograph Report ---
[address] [place] [address] Test Date: 2019-01-03 Pat Name: Toma Mark Department: 113 Room: [facility] Gender: F Shop Clerk: : 1950 Requested By: Darshan Shay Order Number: [id number] Reading MD: Nimisha Moore Measurements Intervals Morgan Rate: 62 P: 21 MT: 191 QRS: 9 QRSD: 81 T: 45 QT: 422 QTc: 426 Interpretive Statements SINUS RHYTHM MINIMAL VOLTAGE CRITERIA FOR LVH, CONSIDER NORMAL VARIANT Electronically Signed On 01-03-2019 23:41:06 EST by Nimisha Moore
[2019-01-04] MEDS: Metoclopramide 10 MG/2 ML VIAL IVP SCH ×5 (00:08→23:16)
[2019-01-04] MEDS: *HR* FentaNYL (PF) 100 MCG/2 ML VIAL IVP PRN ×2 (03:00→06:12)
[2019-01-04 03:16] LABS: Basophils % 0.1 %; Hematocrit 32.6 % (35.3-44.9); Immature Granulocytes % 0.4 % (0-4); Lymphocytes # 1.1 K/mcL (0.6-4.6); Lymphocytes % 6.1 %; Mean Corpuscular HGB Conc 33.4 g/dL (31.6-35.5); Mean Corpuscular Volume 89.8 fL (83.0-100.0); Mean Platelet Volume 10.2 fL (9.4-12.4); Monocytes # 1.7 K/mcL (0.0-1.3); Monocytes % 9.5 %; Neutrophils # 15.1 K/mcL (1.6-8.9); Platelet Count 216 K/mcL (140-400); Red Blood Count 3.63 M/mcL (3.82-4.97); Red Cell Distribution Width 12.5 % (11.5-14.5); Segmented Neutrophils % 83.9 %
[2019-01-04 03:23] LABS: Hemoglobin 10.9 g/dL (11.5-15.4)
[2019-01-04 03:24] LABS: INR 1.1; Prothrombin Time 12.8 Seconds (9.4-12.1)
[2019-01-04 03:27] LABS: Activated Partial Thrombo Time 27.8 Seconds (26.0-36.0)
[2019-01-04] MEDS: *HR* OxyCODONE/APAP 5/325 TABLET PO PRN ×5 (03:27→23:17)
[2019-01-04 03:38] LABS: BUN/Creatinine Ratio 21 (6-26); Blood Urea Nitrogen 13 mg/dL (8-23); Calcium 8.1 mg/dL (8.6-10.3); Carbon Dioxide 24 mEq/L (23-29); Chloride 107 mEq/L (98-107); Glucose 146 mg/dL (70-105); Magnesium 1.9 mg/dL (1.6-2.6); Osmolality,Calculated 287 (280-300); Sodium 137 mEq/L (136-145); eGFR For Non-African Americans > 60 (> 60)
[2019-01-04] MEDS: Nitroglycerin 25 MG/250 ML INFUS..BTL IVC SCH (04:20)
[2019-01-04] MEDS: niCARdipine 40 MG/200 ML MLS IVC SCH (05:06)
[2019-01-04] MEDS: 0.9 % Sodium Chloride w KCl 20 MEQ/1,000 ML MLS IVC SCH (06:04)
[2019-01-04] MEDS: 0.9 % Sodium Chloride 1,000 ML IVC SCH (06:06)
--- NOTE | 2019-01-04 06:58 | Cardiothoracic Progress Note ---
Date of Encounter: 01/04/19 Time of Encounter: 06:56 - Assessment and plan (1) Unstable angina Current Visit: Yes Status: Acute The patient remained hemodynamically stable overnight. She is currently extubated and breathing comfortably. She is been able to sit in a chair without difficulty. The arterial line, Sparks catheter, and Jermyn-Layton catheter be removed. The patient be transferred to the stepdown unit when a bed is available. The assessment and plan as outlined above was discussed with the patient and/or family members who expressed understanding and agreement. All questions were answered. - Subjective Procedure(s) Performed: POD#1 S/P CABG5 Interval history: The patient remained hemodynamically stable overnight. She is extubated and breathing comfortably. She has been able to sit in a chair without difficulty. She has no complaints. Vital Signs, Last 4 Hours Temp Pulse Resp BP Pulse Ox 01/04/19 06:00 90 14 122/63 93 01/04/19 05:00 93 16 122/61 93 01/04/19 04:23 16 95 01/04/19 04:00 97 14 128/65 95 01/04/19 03:00 98.9 F 100 16 130/64 91 Oxgyen Flow Rate Oxygen Flow Rate (LPM) 4 Clinical Data, last 8 Hours Output, Chest Tube Drainage 20 Amount [Mediastinal #2] Output, Chest Tube Drainage 10 Amount [Mediastinal #2] Output, Chest Tube Drainage 20 Amount [Mediastinal #2] Output, Chest Tube Drainage 10 Amount [Mediastinal #2] Output, Chest Tube Drainage 15 Amount [Mediastinal #2] Output, Chest Tube Drainage 20 Amount [Mediastinal #2] Output, Chest Tube Drainage 0 Amount [Mediastinal #2] Output, Chest Tube Drainage 25 Amount [Mediastinal #2] Output, Chest Tube Drainage 0 Amount [Mediastinal #1] Output, Chest Tube Drainage 0 Amount [Mediastinal #1] Output, Chest Tube Drainage 0 Amount [Mediastinal #1] Output, Chest Tube Drainage 0 Amount [Mediastinal #1] Output, Chest Tube Drainage 0 Amount [Mediastinal #1] Output, Chest Tube Drainage 0 Amount [Mediastinal #1] Output, Chest Tube Drainage 0 Amount [Mediastinal #1] Output, Chest Tube Drainage 15 Amount [Mediastinal #1] Weight 01/02/19 01/03/19 01/04/19 23:59 23:59 23:59 Weight 82.781 kg 81.7 kg 83.2 kg - Physical Examination General: Conversant, No Apparent Distress Neck: No JVD, Normal carotid pulses Cardiac: Reg Rate and Rhythm, Normal S1 and S2, No Murmur Incision: No signs of infection, Dry/intact dressing Sternum: Stable Chest tubes: Minimal drainage, Other (No air leak) Pacing Wires: In place Lungs: Normal Breath Sounds, No Wheeze, Rales, Rhonchi Neuro: Alert and responsive, No focal deficits noted Vascular: Normal capillary refill Extremities: No Clubbing, No Cyanosis, No Edema - Labs 01/04/19 03:05 01/04/19 03:05 Lab Results, Last 24 hours 01/03/19 01/03/19 01/03/19 12:48 12:48 12:48 WBC 20.4 H D Hgb 11.5 D Hct 33.9 L Plt Count 180 D INR 1.2 APTT 31.6 Sodium 138 Potassium 3.7 Chloride 108 H Carbon Dioxide 24 BUN 10 Creatinine 0.66 Glucose 141 H Calcium 7.7 L Magnesium 2.0 01/03/19 01/03/19 01/04/19 16:15 16:15 03:05 WBC 20.0 H 18.0 H Hgb 12.9 10.9 L D Hct 38.0 32.6 L Plt Count 224 216 INR APTT Sodium 138 Potassium 4.0 Chloride 108 H Carbon Dioxide 25 BUN 12 Creatinine 0.63 Glucose 139 H Calcium 8.5 L Magnesium 01/04/19 01/04/19 03:05 03:05 WBC Hgb Hct Plt Count INR 1.1 APTT 27.8 Sodium 137 Potassium 4.0 Chloride 107 Carbon Dioxide 24 BUN 13 Creatinine 0.61 Glucose 146 H Calcium 8.1 L Magnesium 1.9 - Imaging Chest Xray: image reviewed (No pneumothorax. Minimal atelectasis/infiltrates.) - VTE Documentation of Mechanical Device: Graduated compression elastic hosiery Consult Discharge Plan - Plan Instructions: Left Heart Catheterization (DC) Additional Instructions: RISK FACTORS: STOP SMOKING: If you smoke, STOP. Smoking or tobacco use significantly increases your risk of heart disease because nicotine causes the arteries to narrow or constrict. It also causes fats to stick to the artery. Your chances of having a heart attack are greatly increased if you continue to smoke. For more information, call the education line for smoking cessation 3-540-KBZGULR EAT A LOW FAT/CHOLESTEROL/SODIUM DIET: This diet may help reduce your chances of having a heart attack. LIFTING: Avoid lifting anything more than 10 pounds for 5-7 days Prior to straining, laughing, sneezing and/or coughing, apply manual pressure directly over insertion site. ACTIVITY: You may walk or climb stairs as tolerated You can resume sexual activity as tolerated In general, you are encouraged to engage in a minimum of 30 minutes or more of moderate intensity physical activity, such as brisk walking, daily or at least 3-4 times weekly BATHING Do not submerge the site into water (bath tub, hot tub, swimming pool) for 1 week. This can be a source for infection into the blood stream. You may shower after 24 hours SITE CARE: After 24 hours, you may remove the dressing and leave the site open to air. Keep the site clean and dry. Clean gently and pat dry. You can expect bruising and tenderness that gradually resolve within a week or two. Return to work as instructed per your physician Resume driving as instructed per physician Keep all scheduled follow up appointments Resume medications as instructed IMPORTANT: If prescribed a Platelet Aggregation Inhibitor such as, Plavix, Brilinta or Effient: Duration of therapy is minimum one year These medications are often used in combination with Aspirin in prevention of future heart attacks Never discontinue unless consult with your Digital Media Designer STROKE (CVA) Risk factors for a stroke are: Age, cigarette smoking, diabetes, excessive alcohol consumption, family history, high blood pressure, overweight, physical inactivity, prior stroke, heart attack, diagnosis of carotid artery stenosis or other artery disease. Warning signs: Sudden numbness or weakness of the face, arm or leg; especially on one side of the body, sudden confusion, trouble speaking or understanding, sudden trouble seeing in one or both eyes, sudden trouble walking, dizziness, loss of balance or coordination, sudden severe headache with no cause. Call 911 or go to the Emergency Room. CONGESTIVE HEART FAILURE: If you have been diagnosed with Congestive Heart Failure (CHF) and your symp toms return, make an appointment with your physician Weigh yourself daily. Notify your physician if you have a weight gain of two or more pounds in one day or five or more pounds in one week. If you experience any difficulty breathing, please call 911 BLEEDING: Although the risk of bleeding is minimal, it can happen. If you have any bleeding from the site, apply firm pressure above the puncture site for 10-15 minutes. If the bleeding does not stop, continue manual pressure and call 911 Contact your physician if: You develop a fever greater than 101 degrees Fahrenheit Your site becomes reddened or has any drainage You have an increase in pain or burning at the site or if a large knot forms at the site. If you experience chest pain, shortness of breath, dizziness, or extreme tiredness, stop the activity and rest. Please notify your physicians office if you experience any of these symptoms and they are not relieved by rest please call 911! Referrals: Skip Mathur MD [Primary Care Provider] -
[2019-01-04] MEDS ORDERED: *HR* FentaNYL (PF) 100 MCG/2 ML VIAL IVP PRN (07:59)
[2019-01-04] MEDS ORDERED: Ondansetron 4 MG/2 ML VIAL IVP PRN (07:59)
[2019-01-04] MEDS ORDERED: Nitroglycerin 0.4 MG TAB.SUBL SL PRN (07:59)
[2019-01-04] MEDS ORDERED: Naloxone 0.4 MG/ML INJ IVP PRN (07:59)
[2019-01-04] MEDS ORDERED: *HR* Dextrose 50 % in Water (Syg) 50 ML SYRINGE IVP PRN (07:59)
[2019-01-04] MEDS ORDERED: D5% in Water 1,000 ML IVC PRN (07:59)
[2019-01-04] MEDS ORDERED: tiZANidine 4 MG TABLET PO PRN (07:59)
[2019-01-04] MEDS ORDERED: Dextrose Gel 15 GM/37.5 ML TUBE PO PRN ×2 (07:59)
[2019-01-04] MEDS ORDERED: Insulin Regular, Human 100 UNIT/ML IV PRN (07:59)
[2019-01-04] MEDS ORDERED: Furosemide 20 MG/2 ML VIAL IVP SCH (08:00)
[2019-01-04] MEDS: Pantoprazole 40 MG VIAL IVP SCH (08:25)
[2019-01-04] MEDS: Furosemide 20 MG/2 ML VIAL IVP SCH ×2 (08:25→18:03)
[2019-01-04] MEDS: Chlorhexidine Rinse 15 ML MOUTHWASH MM SCH ×2 (08:26→20:50)
[2019-01-04] MEDS: Aspirin Enteric Coated 81 MG Tablet PO SCH (08:27)
[2019-01-04] MEDS ORDERED: Aspirin Enteric Coated 81 MG Tablet PO SCH (09:00)
[2019-01-04] MEDS: *HR* Heparin 5,000 UNIT/ML VIAL SQ SCH ×2 (10:35→18:04)
[2019-01-04] MEDS: Insulin LISPRO 300 UNITS/3 ML VIAL SQ SCH ×4 (10:36→20:50)
[2019-01-04] MEDS: Insulin Human Regular 100 UNIT in 0.9 % Sodium Chloride 100 ML IVC SCH (10:36)
[2019-01-04] MEDS: Acetaminophen 325 MG TABLET PO PRN (20:49)
[2019-01-05 03:55] LABS: Basophils % 0.3 %; Eosinophils % 0.1 %; Hematocrit 29.6 % (35.3-44.9); Hemoglobin 9.7 g/dL (11.5-15.4); Immature Granulocytes % 0.6 % (0-4); Lymphocytes # 1.9 K/mcL (0.6-4.6); Lymphocytes % 12.6 %; Mean Corpuscular HGB Conc 32.8 g/dL (31.6-35.5); Mean Corpuscular Volume 91.6 fL (83.0-100.0); Mean Platelet Volume 10.5 fL (9.4-12.4); Monocytes # 1.5 K/mcL (0.0-1.3); Neutrophils # 11.3 K/mcL (1.6-8.9); Platelet Count 211 K/mcL (140-400); Red Blood Count 3.23 M/mcL (3.82-4.97); Red Cell Distribution Width 12.8 % (11.5-14.5); Segmented Neutrophils % 76.4 %
[2019-01-05 04:13] LABS: BUN/Creatinine Ratio 18 (6-26); Blood Urea Nitrogen 14 mg/dL (8-23); Calcium 8.5 mg/dL (8.6-10.3); Carbon Dioxide 28 mEq/L (23-29); Chloride 102 mEq/L (98-107); Glucose 133 mg/dL (70-105); Osmolality,Calculated 288 (280-300); Potassium 4.5 mEq/L (3.5-5.1); Sodium 138 mEq/L (136-145); eGFR For Non-African Americans > 60 (> 60)
[2019-01-05] MEDS: Metoclopramide 10 MG/2 ML VIAL IVP SCH ×4 (06:16→23:34)
[2019-01-05] MEDS: *HR* Heparin 5,000 UNIT/ML VIAL SQ SCH ×2 (06:17→16:58)
[2019-01-05] MEDS: *HR* OxyCODONE/APAP 5/325 TABLET PO PRN ×3 (07:37→20:20)
[2019-01-05] MEDS: Aspirin Enteric Coated 81 MG Tablet PO SCH (07:38)
[2019-01-05] MEDS: Pantoprazole 40 MG VIAL IVP SCH (07:38)
[2019-01-05] MEDS: Insulin LISPRO 300 UNITS/3 ML VIAL SQ SCH ×4 (07:39→20:17)
[2019-01-05] MEDS: Insulin Human Regular 100 UNIT in 0.9 % Sodium Chloride 100 ML IVC SCH (07:39)
[2019-01-05] MEDS: Furosemide 20 MG/2 ML VIAL IVP SCH ×2 (07:40→16:58)
[2019-01-05] MEDS: Chlorhexidine Rinse 15 ML MOUTHWASH MM SCH ×2 (07:40→20:20)
--- NOTE | 2019-01-05 08:40 | Cardiothoracic Progress Note ---
Date of Encounter: 01/05/19 Time of Encounter: 08:38 - Assessment and plan (1) Unstable angina Current Visit: Yes Status: Acute The patient remained hemodynamically stable overnight. Chest tubes were removed. She will be transferred to the stepdown unit when a bed is available. The assessment and plan as outlined above was discussed with the patient and/or family members who expressed understanding and agreement. All questions were answered. - Subjective Procedure(s) Performed: POD#2 S/P CABG5 Interval history: The patient remained hemodynamically stable overnight. She has been able to sit in a chair without difficulty. She has no complaints. Vital Signs, Last 4 Hours Temp Pulse Resp BP Pulse Ox 01/05/19 07:50 14 96 01/05/19 07:48 82 01/05/19 07:30 98.3 F 01/05/19 07:00 101 16 109/66 97 01/05/19 06:00 91 16 132/68 97 01/05/19 05:00 90 16 126/69 99 Oxgyen Flow Rate Oxygen Flow Rate (LPM) 2 Clinical Data, last 8 Hours Output, Chest Tube Drainage 30 Amount [Mediastinal #2] Output, Chest Tube Drainage 12 Amount [Mediastinal #1] Output, Urine Amount 0 Weight 01/03/19 01/04/19 01/05/19 23:59 23:59 23:59 Weight 81.7 kg 86 kg - Physical Examination General: Conversant, No Apparent Distress Neck: No JVD, Normal carotid pulses Cardiac: Reg Rate and Rhythm, Normal S1 and S2, No Murmur Incision: No signs of infection, Dry/intact dressing Sternum: Stable Pacing Wires: In place Lungs: Normal Breath Sounds, No Wheeze, Rales, Rhonchi Neuro: Alert and responsive, No focal deficits noted Vascular: Normal capillary refill Extremities: No Clubbing, No Cyanosis, No Edema - Labs 01/05/19 03:34 01/05/19 03:34 Lab Results, Last 24 hours 01/05/19 01/05/19 03:34 03:34 WBC 14.7 H Hgb 9.7 L Hct 29.6 L Plt Count 211 Sodium 138 Potassium 4.5 Chloride 102 Carbon Dioxide 28 BUN 14 Creatinine 0.78 Glucose 133 H Calcium 8.5 L - VTE Documentation of Mechanical Device: Graduated compression elastic hosiery Consult Discharge Plan - Plan Instructions: Left Heart Catheterization (DC) Additional Instructions: RISK FACTORS: STOP SMOKING: If you smoke, STOP. Smoking or tobacco use significantly increases your risk of heart disease because nicotine causes the arteries to narrow or constrict. It also causes fats to stick to the artery. Your chances of having a heart attack are greatly increased if you continue to smoke. For more information, call the education line for smoking cessation 2-254-WAYSVMB EAT A LOW FAT/CHOLESTEROL/SODIUM DIET: This diet may help reduce your chances of having a heart attack. LIFTING: Avoid lifting anything more than 10 pounds for 5-7 days Prior to straining, laughing, sneezing and/or coughing, apply manual pressure directly over insertion site. ACTIVITY: You may walk or climb stairs as tolerated You can resume sexual activity as tolerated In general, you are encouraged to engage in a minimum of 30 minutes or more of moderate intensity physical activity, such as brisk walking, daily or at least 3-4 times weekly BATHING Do not submerge the site into water (bath tub, hot tub, swimming pool) for 1 week. This can be a source for infection into the blood stream. You may shower after 24 hours SITE CARE: After 24 hours, you may remove the dressing and leave the site open to air. Keep the site clean and dry. Clean gently and pat dry. You can expect bruising and tenderness that gradually resolve within a week or two. Return to work as instructed per your physician Resume driving as instructed per physician Keep all scheduled follow up appointments Resume medications as instructed IMPORTANT: If prescribed a Platelet Aggregation Inhibitor such as, Plavix, Brilinta or Effient: Duration of therapy is minimum one year These medications are often used in combination with Aspirin in prevention of future heart attacks Never discontinue unless consult with your Lubricating Specialist STROKE (CVA) Risk factors for a stroke are: Age, cigarette smoking, diabetes, excessive alcohol consumption, family history, high blood pressure, overweight, physical inactivity, prior stroke, heart attack, diagnosis of carotid artery stenosis or other artery disease. Warning signs: Sudden numbness or weakness of the face, arm or leg; especially on one side of the body, sudden confusion, trouble speaking or understanding, sudden trouble seeing in one or both eyes, sudden trouble walking, dizziness, loss of balance or coordination, sudden severe headache with no cause. Call 911 or go to the Emergency Room. CONGESTIVE HEART FAILURE: If you have been diagnosed with Congestive Heart Failure (CHF) and your symptoms return, make an appointment with your physician Weigh yourself daily. Notify your physician if you have a weight gain of two or more pounds in one day or five or more pounds in one week. If you experience any difficulty breathing, please call 911 BLEEDING: Although the risk of bleeding is minimal, it can happen. If you have any bleeding from the site, apply firm pressure above the puncture site for 10-15 minutes. If the bleeding does not stop, continue manual pressure and call 911 Contact your physician if: You develop a fever greater than 101 degrees Fahrenheit Your site becomes reddened or has any drainage You have an increase in pain or burning at the site or if a large knot forms at the site. If you experience chest pain, shortness of breath, dizziness, or extreme tiredness, stop the activity and rest. Please notify your physicians office if you experience any of these symptoms and they are not relieved by rest please call 911! Referrals: Skip Mathur MD [Primary Care Provider] -
[2019-01-06] MEDS: *HR* OxyCODONE/APAP 5/325 TABLET PO PRN ×2 (03:12→18:17)
[2019-01-06] MEDS: *HR* Heparin 5,000 UNIT/ML VIAL SQ SCH ×2 (06:00→17:59)
[2019-01-06] MEDS: Metoclopramide 10 MG/2 ML VIAL IVP SCH ×3 (06:00→17:59)
[2019-01-06] MEDS: Pantoprazole 40 MG VIAL IVP SCH (07:49)
[2019-01-06] MEDS: Aspirin Enteric Coated 81 MG Tablet PO SCH (07:49)
[2019-01-06] MEDS: Chlorhexidine Rinse 15 ML MOUTHWASH MM SCH ×2 (07:49→20:33)
--- NOTE | 2019-01-06 07:49 | Cardiothoracic Progress Note ---
Date of Encounter: 01/06/19 Time of Encounter: 07:48 - Assessment and plan (1) Unstable angina Current Visit: Yes Status: Acute The patient remained hemodynamically stable overnight. Chest tubes were removed. She will be transferred to the stepdown unit when a bed is available. The assessment and plan as outlined above was discussed with the patient and/or family members who expressed understanding and agreement. All questions were answered. - Subjective Procedure(s) Performed: POD#3 S/P CABG5 Interval history: The patient remained hemodynamically stable overnight. She has been able to sit in a chair and ambulate in the ICU without difficulty. She has no complaints. Vital Signs, Last 4 Hours Temp Pulse Resp BP Pulse Ox 01/06/19 07:45 16 93 01/06/19 06:00 88 16 125/73 92 01/06/19 04:00 99.1 F 81 21 106/58 95 Oxgyen Flow Rate Oxygen Flow Rate (LPM) 2 Clinical Data, last 8 Hours Output, Urine Amount 250 Weight 01/04/19 01/05/19 01/06/19 23:59 23:59 23:59 Weight 86 kg 83.6 kg - Physical Examination General: Conversant, No Apparent Distress Neck: No JVD, Normal carotid pulses Cardiac: Reg Rate and Rhythm, Normal S1 and S2, No Murmur Incision: No signs of infection, Dry/intact dressing Sternum: Stable Pacing Wires: In place Lungs: Normal Breath Sounds, No Wheeze, Rales, Rhonchi Neuro: Alert and responsive, No focal deficits noted Vascular: Normal capillary refill Extremities: No Clubbing, No Cyanosis, No Edema - Labs 01/05/19 03:34 01/05/19 03:34 - VTE Documentation of Mechanical Device: Graduated compression elastic hosiery Consult Discharge Plan - Plan Instructions: Left Heart Catheterization (DC) Additional Instructions: RISK FACTORS: STOP SMOKING: If you smoke, STOP. Smoking or tobacco use significantly increases your risk of heart disease because nicotine causes the arteries to narrow or constrict. It also causes fats to stick to the artery. Your chances of having a heart attack are greatly increased if you continue to smoke. For more information, call the education line for smoking cessation 3-405-[id number] EAT A LOW FAT/CHOLESTEROL/SODIUM DIET: This diet may help reduce your chances of having a heart attack. LIFTING: Avoid lifting anything more than 10 pounds for 5-7 days Prior to straining, laughing, sneezing and/or coughing, apply manual pressure directly over insertion site. ACTIVITY: You may walk or climb stairs as tolerated You can resume sexual activity as tolerated In general, you are encouraged to engage in a minimum of 30 minutes or more of moderate intensity physical activity, such as brisk walking, daily or at least 3-4 times weekly BATHING Do not submerge the site into water (bath tub, hot tub, swimming pool) for 1 week. This can be a source for infection into the blood stream. You may shower after 24 hours SITE CARE: After 24 hours, you may remove the dressing and leave the site open to air. Keep the site clean and dry. Clean gently and pat dry. You can expect bruising and tenderness that gradually resolve within a week or two. Return to work as instructed per your physician Resume driving as instructed per physician Keep all scheduled follow up appointments Resume medications as instructed IMPORTANT: If prescribed a Platelet Aggregation Inhibitor such as, Plavix, Brilinta or Effient: Duration of therapy is minimum one year These medications are often used in combination with Aspirin in prevention of future heart attacks Never discontinue unless consult with your Closing Manager STROKE (CVA) Risk factors for a stroke are: Age, cigarette smoking, diabetes, excessive alcohol consumption, family history, high blood pressure, overweight, physical inactivity, prior stroke, heart attack, diagnosis of carotid artery stenosis or other artery disease. Warning signs: Sudden numbness or weakness of the face, arm or leg; especially on one side of the body, sudden confusion, trouble speaking or understanding, sudden trouble seeing in one or both eyes, sudden trouble walking, dizziness, loss of balance or coordination, sudden severe headache with no cause. Call 911 or go to the Emergency Room. CONGESTIVE HEART FAILURE: If you have been diagnosed with Congestive Heart Failure (CHF) and your symptoms return, make an appointment with your physician Weigh yourself daily. Notify your physician if you have a weight gain of two or more pounds in one day or five or more pounds in one week. If you experience any difficulty breathing, please call 911 BLEEDING: Although the risk of bleeding is minimal, it can happen. If you have any bleeding from the site, apply firm pressure above the puncture site for 10-15 minutes. If the bleeding does not stop, continue manual pressure and call 911 Contact your physician if: You develop a fever greater than 101 degrees Fahrenheit Your site becomes reddened or has any drainage You have an increase in pain or burning at the site or if a large knot forms at the site. If you experience chest pain, shortness of breath, dizziness, or extreme tire dness, stop the activity and rest. Please notify your physicians office if you experience any of these symptoms and they are not relieved by rest please call 911! Referrals: Skip Mathur MD [Primary Care Provider] -
[2019-01-06] MEDS: Furosemide 20 MG/2 ML VIAL IVP SCH ×2 (07:50→16:05)
[2019-01-06] MEDS: Insulin LISPRO 300 UNITS/3 ML VIAL SQ SCH ×4 (07:50→20:28)
[2019-01-06] MEDS: Acetaminophen 325 MG TABLET PO PRN (22:21)
[2019-01-07] MEDS: *HR* OxyCODONE/APAP 5/325 TABLET PO PRN ×2 (01:15→08:22)
[2019-01-07] MEDS: *HR* Heparin 5,000 UNIT/ML VIAL SQ SCH (05:46)
[2019-01-07] MEDS: Insulin LISPRO 300 UNITS/3 ML VIAL SQ SCH (08:23)
[2019-01-07] MEDS: Aspirin Enteric Coated 81 MG Tablet PO SCH (08:23)
[2019-01-07] MEDS: Chlorhexidine Rinse 15 ML MOUTHWASH MM SCH (08:23)
[2019-01-07 09:38] VITALS: BP 138/69
--- NOTE | 2019-01-07 10:03 | Discharge Summary ---
Orders not resulted at time of discharge: Pending orders 01/02/19 16:18 Red Blood Cells [BBK] Routine Type and Screen [BBK] Routine Date of Encounter: 01/07/19 Time of Encounter: 10:01 - Discharge Diagnosis (1) Unstable angina Priority: Primary Status: Acute - Hospital Course Hospital course: Ms. Mark is a 68 year old female - Time Spent with Patient Total time spent providing and/or coordinating discharge services: - Discharge Medications Home Medications: Aspirin 81 mg PO DAILY 04/28/17 [History] Losartan Potassium [Cozaar] 50 mg PO DAILY 04/28/17 [History] Metoprolol [Lopressor] 25 mg PO BID 01/02/19 [History] Rosuvastatin [Crestor] 20 mg PO DAILY 01/02/19 [History] Tizanidine HCl [Zanaflex] 4 mg PO HS PRN 01/02/19 [History] Azelaic Acid [Finacea] 1 appl TP BID PRN 01/03/19 [History] B Complex with Vitamin C [Vitamin B-Complex & C] 1 tab PO DAILY 01/03/19 [History] Cholecalciferol (D-3) [Vitamin D] 1,000 unit PO DAILY 01/03/19 [History] Esomeprazole Magnesium [Nexium] 20 mg PO DAILY 01/03/19 [History] Famotidine [Pepcid] 40 mg PO DAILY 01/03/19 [History] Omeprazole [PriLOSEC] 20 mg PO DAILY 01/03/19 [History] Allergies/Adverse Reactions: Allergy/AdvReac Type Severity Reaction Status Date / Time magnesium Allergy See Verified 01/03/19 13:27 Comments Date of admission: 01/02/19 16:00 Primary care physician: Sikp Mathur MD Consults: 01/03/19 12:32 Consult to Cardiac Rehabilitation-Phase1 [CONS] Routine Comment: Reason for Consult: Post open heart Call Completed: Yes Procedure(s) Performed: cabg x 5 Discharging clinician: Yaw Zepeda Anticipated date of discharge: 01/07/19 Physical Examination Vital Signs, Last 4 Hours Temp Pulse Resp BP Pulse Ox 01/07/19 08:20 98.1 F 104 16 138/69 104 01/07/19 07:48 98.1 F General: Conversant, No Apparent Distress, Well developed, Well nourished HEENT: Atraumatic, Normocephaly Cardiac: Reg Rate and Rhythm, Normal S1 and S2, No Murmur Lungs: Normal Breath Sounds Neuro: Alert and responsive, No focal deficits noted, Cranial nerves intact, Motor nerves intact Abdomen: Soft, Non-tender Extremities: No Edema, Normal Pulses - Patient Status Disposition: Home, Self-Care Condition: Good Functional capacity at discharge: independent ambulation Overall status at discharge: patient is progressing back to baseline - Discharge Instructions Instructions: Left Heart Catheterization (DC) Follow Up With: Samantha Shay MD [Partnered Physician] - 02/02/19 1:00 pm Inocente Garcia DO [Partnered Physician] - (Follow up appt with cardiology within 4-6 weeks. Appointment requested. Office will call patient with appt date/time and provider name. ) Skip Mathur MD [Primary Care Provider] - 01/10/19 10:15 am - Diet and Activity Activity: sternal precautions, no driving for four weeks, no lifting greater than 10 pounds for eight weeks Diet: advance to your usual diet [facility] Aspirin Cont/Prescribed at DC: Yes Beta Ursula Cont/Prescribed at DC: Yes Statin Cont/Prescribed at DC: Yes THAD/ARB Cont/Prescribed at DC: Yes - VTE Documentation of Mechanical Device: Graduated compression elastic hosiery
--- NOTE | 2019-01-07 12:11 | Electrocardiograph Report ---
[place] [id number] Test Date: 2019-01-03 Pat Name: Toma Mark Department: 109 Room: [facility] Gender: F Bulk Mail Clerk: : 1950 Requested By: Darshan Shay Order Number: [id number] Reading MD: Nimisha Moore Measurements Intervals [place] Rate: 63 P: 37 UT: 179 QRS: 39 QRSD: 82 T: 78 QT: 474 QTc: 481 Interpretive Statements SINUS RHYTHM NONSPECIFIC ST & T-WAVE ABNORMALITY PROLONGED QT INTERVAL Electronically Signed On 01-07-2019 12:09:42 EST by Nimisha Moore
== END 2019-01-07 12:04 | disposition home or self-care (01) | DRG 234 ==
LOC: INVDIALAB 08:27 → 3BNU 16:00 → ICNU 01-03 09:58
PROVIDERS: ADMIT Internal Medicine Cardiovascular Disease; ATTEND Thoracic Surgery (Cardiothoracic Vascular Surgery)

== ENCOUNTER 2021-11-11 04:16 | Inpatient (IN) ==
[2021-11-11] MEDS ORDERED: Ketorolac 30 MG/ML VIAL IVP STA (06:15)
[2021-11-11 06:48] LABS: Basophils % 0.3 %; Hemoglobin 15.3 g/dL (11.5-15.4); Immature Granulocytes % 0.6 % (0-4); Lymphocytes # 0.4 K/mcL (0.6-4.6); Lymphocytes % 12.1 %; Mean Corpuscular HGB Conc 35.6 g/dL (31.6-35.5); Mean Corpuscular Hemoglobin 30.6 pg (28.0-33.3); Mean Platelet Volume 10.3 fL (9.4-12.4); Monocytes # 0.4 K/mcL (0.0-1.3); Monocytes % 10.7 %; Neutrophils # 2.7 K/mcL (1.6-8.9); Platelet Count 224 K/mcL (140-400); Segmented Neutrophils % 76.3 %; White Blood Count 3.5 K/mcL (4.3-11.1)
[2021-11-11 07:09] LABS: Alanine Aminotransferase 20 Units/L (7-52); Albumin 4.4 g/dL (3.5-5.7); Albumin/Globulin Ratio 1.7 (1.1-2.2); Alkaline Phosphatase 61 Units/L (34-104); Aspartate Amino Transferase 19 Units/L (13-39); BUN/Creatinine Ratio 9 (6-26); Bilirubin,Direct 0.1 mg/dL (0.0-0.2); Bilirubin,Indirect 0.4 mg/dL (0.0-1.0); Bilirubin,Total 0.5 mg/dL (0.3-1.0); Blood Urea Nitrogen 7 mg/dL (8-23); Calcium 8.9 mg/dL (8.6-10.3); Carbon Dioxide 25 mEq/L (23-29); Chloride 90 mEq/L (98-107); Globulin 2.6 g/dL (2.4-3.5); Glucose 110 mg/dL (70-105); Osmolality,Calculated 259 (280-300); Potassium 3.5 mEq/L (3.5-5.1); Sodium 125 mEq/L (136-145); Troponin I < 0.03 ng/mL (< 0.04); eGFR For African Americans > 60 (> 60); eGFR For Non-African Americans > 60 (> 60)
[2021-11-11 07:21] LABS: Influenza A PCR Negative (Negative); Influenza B PCR Negative (Negative); Resp. Syncytial Virus PCR Negative (Negative)
[2021-11-11 09:11] LABS: SARS-CoV-2 by PCR (In House) Positive (Negative)
[2021-11-11] MEDS ORDERED: Ondansetron 4 MG/2 ML VIAL IVP ONE (10:26)
[2021-11-11] MEDS ORDERED: 0.9 % Sodium Chloride 1,000 ML IVC SCH (10:30)
[2021-11-11] MEDS ORDERED: Naloxone 0.4 MG/ML INJ IVP PRN (10:42)
[2021-11-11 11:58] LABS: BUN/Creatinine Ratio 11 (6-26); Blood Urea Nitrogen 8 mg/dL (8-23); Calcium 8.7 mg/dL (8.6-10.3); Carbon Dioxide 26 mEq/L (23-29); Chloride 91 mEq/L (98-107); Glucose 99 mg/dL (70-105); Osmolality,Calculated 258 (280-300); Potassium 3.4 mEq/L (3.5-5.1); Sodium 125 mEq/L (136-145); eGFR For African Americans > 60 (> 60); eGFR For Non-African Americans > 60 (> 60)
[2021-11-11] MEDS: 0.9 % Sodium Chloride 1,000 ML IVC SCH (16:00)
[2021-11-11] MEDS: Acetaminophen 325 MG TABLET PO PRN (16:54)
[2021-11-11 17:37] LABS: BUN/Creatinine Ratio 13 (6-26); Blood Urea Nitrogen 9 mg/dL (8-23); Calcium 8.5 mg/dL (8.6-10.3); Carbon Dioxide 24 mEq/L (23-29); Chloride 93 mEq/L (98-107); Glucose 104 mg/dL (70-105); Osmolality,Calculated 261 (280-300); Potassium 3.5 mEq/L (3.5-5.1); Sodium 126 mEq/L (136-145); eGFR For African Americans > 60 (> 60); eGFR For Non-African Americans > 60 (> 60)
[2021-11-11 23:20] LABS: BUN/Creatinine Ratio 10 (6-26); Blood Urea Nitrogen 8 mg/dL (8-23); Calcium 8.4 mg/dL (8.6-10.3); Carbon Dioxide 27 mEq/L (23-29); Chloride 94 mEq/L (98-107); Glucose 103 mg/dL (70-105); Osmolality,Calculated 265 (280-300); Potassium 3.5 mEq/L (3.5-5.1); Sodium 128 mEq/L (136-145); eGFR For African Americans > 60 (> 60); eGFR For Non-African Americans > 60 (> 60)
[2021-11-12] MEDS ORDERED: Melatonin 3 MG TABLET PO PRN (00:52)
[2021-11-12] MEDS: 0.9 % Sodium Chloride 1,000 ML IVC SCH ×3 (02:25→22:52)
[2021-11-12] MEDS: Acetaminophen 325 MG TABLET PO PRN ×3 (02:44→20:09)
[2021-11-12] MEDS: *HR* Enoxaparin 40 MG/0.4 ML SYRINGE SQ SCH (05:08)
[2021-11-12 05:37] LABS: Basophils % 0.3 %; Hematocrit 40.5 % (35.3-44.9); Hemoglobin 13.6 g/dL (11.5-15.4); Immature Granulocytes % 0.3 % (0-4); Lymphocytes # 0.6 K/mcL (0.6-4.6); Lymphocytes % 19.1 %; Mean Corpuscular HGB Conc 33.6 g/dL (31.6-35.5); Mean Corpuscular Hemoglobin 29.4 pg (28.0-33.3); Mean Corpuscular Volume 87.5 fL (83.0-100.0); Mean Platelet Volume 10.3 fL (9.4-12.4); Monocytes # 0.3 K/mcL (0.0-1.3); Monocytes % 10.8 %; Neutrophils # 2.2 K/mcL (1.6-8.9); Platelet Count 195 K/mcL (140-400); Red Blood Count 4.63 M/mcL (3.82-4.97); Red Cell Distribution Width 12.2 % (11.5-14.5); Segmented Neutrophils % 69.5 %; White Blood Count 3.1 K/mcL (4.3-11.1)
[2021-11-12 05:50] LABS: Magnesium 1.9 mg/dL (1.6-2.6)
[2021-11-12 05:51] LABS: C-Reactive Protein 13 mg/L (Less than 10)
[2021-11-12 06:10] LABS: Ferritin 156 ng/mL (10-120)
[2021-11-12] MEDS: Isosorbide MONOnitrate (24 HR) 30 MG TAB.ER.24H PO SCH (07:45)
[2021-11-12] MEDS: amLODIPine 5 MG TABLET PO SCH ×2 (07:53→07:56)
[2021-11-12 08:18] LABS: BUN/Creatinine Ratio 14 (6-26); Blood Urea Nitrogen 9 mg/dL (8-23); Calcium 7.9 mg/dL (8.6-10.3); Carbon Dioxide 22 mEq/L (23-29); Chloride 96 mEq/L (98-107); Glucose 108 mg/dL (70-105); Osmolality,Calculated 263 (280-300); Potassium 3.4 mEq/L (3.5-5.1); Sodium 127 mEq/L (136-145); eGFR For African Americans > 60 (> 60); eGFR For Non-African Americans > 60 (> 60)
[2021-11-13 01:31] LABS: Basophils % 0.3 %; Eosinophils % 0.3 %; Hematocrit 39.6 % (35.3-44.9); Hemoglobin 13.6 g/dL (11.5-15.4); Immature Granulocytes % 0.8 % (0-4); Lymphocytes # 0.7 K/mcL (0.6-4.6); Lymphocytes % 17.5 %; Mean Corpuscular HGB Conc 34.3 g/dL (31.6-35.5); Mean Corpuscular Hemoglobin 30.7 pg (28.0-33.3); Mean Corpuscular Volume 89.4 fL (83.0-100.0); Mean Platelet Volume 10.5 fL (9.4-12.4); Monocytes # 0.4 K/mcL (0.0-1.3); Monocytes % 10.6 %; Neutrophils # 2.7 K/mcL (1.6-8.9); Platelet Count 190 K/mcL (140-400); Red Blood Count 4.43 M/mcL (3.82-4.97); Segmented Neutrophils % 70.5 %; White Blood Count 3.8 K/mcL (4.3-11.1)
[2021-11-13 01:51] LABS: Alanine Aminotransferase 26 Units/L (7-52); Albumin 3.5 g/dL (3.5-5.7); Albumin/Globulin Ratio 1.6 (1.1-2.2); Alkaline Phosphatase 43 Units/L (34-104); Aspartate Amino Transferase 41 Units/L (13-39); BUN/Creatinine Ratio 11 (6-26); Bilirubin,Total 0.4 mg/dL (0.3-1.0); Blood Urea Nitrogen 7 mg/dL (8-23); Calcium 7.9 mg/dL (8.6-10.3); Carbon Dioxide 25 mEq/L (23-29); Chloride 96 mEq/L (98-107); Globulin 2.2 g/dL (2.4-3.5); Glucose 99 mg/dL (70-105); Osmolality,Calculated 262 (280-300); Potassium 4.1 mEq/L (3.5-5.1); Sodium 127 mEq/L (136-145); Total Protein 5.7 g/dL (6.4-8.9); eGFR For African Americans > 60 (> 60); eGFR For Non-African Americans > 60 (> 60)
[2021-11-13] MEDS: Acetaminophen 325 MG TABLET PO PRN ×2 (05:03→19:43)
[2021-11-13] MEDS: *HR* Enoxaparin 40 MG/0.4 ML SYRINGE SQ SCH (05:03)
[2021-11-13] MEDS: Isosorbide MONOnitrate (24 HR) 30 MG TAB.ER.24H PO SCH (08:18)
[2021-11-13] MEDS: 0.9 % Sodium Chloride 1,000 ML IVC SCH ×2 (08:19→16:16)
[2021-11-13] MEDS: amLODIPine 5 MG TABLET PO SCH (08:19)
[2021-11-13 11:28] LABS: Thyroid Stimulating Hormone 1.692 mcIU/mL (0.340-5.600)
[2021-11-13] MEDS ORDERED: Ondansetron 4 MG/2 ML VIAL IVP PRN (12:21)
[2021-11-14] MEDS: 0.9 % Sodium Chloride 1,000 ML IVC SCH (02:29)
[2021-11-14 02:44] LABS: Basophils % 0.3 %; Hematocrit 36.4 % (35.3-44.9); Hemoglobin 12.6 g/dL (11.5-15.4); Immature Granulocytes % 0.6 % (0-4); Lymphocytes # 0.7 K/mcL (0.6-4.6); Mean Corpuscular HGB Conc 34.6 g/dL (31.6-35.5); Mean Corpuscular Volume 86.7 fL (83.0-100.0); Mean Platelet Volume 10.3 fL (9.4-12.4); Monocytes # 0.4 K/mcL (0.0-1.3); Monocytes % 11.2 %; Neutrophils # 2.2 K/mcL (1.6-8.9); Platelet Count 197 K/mcL (140-400); Red Cell Distribution Width 11.9 % (11.5-14.5); Segmented Neutrophils % 67.9 %; White Blood Count 3.3 K/mcL (4.3-11.1)
[2021-11-14 02:49] LABS: BUN/Creatinine Ratio 9 (6-26); Blood Urea Nitrogen 6 mg/dL (8-23); Calcium 7.6 mg/dL (8.6-10.3); Carbon Dioxide 26 mEq/L (23-29); Chloride 93 mEq/L (98-107); Glucose 98 mg/dL (70-105); Osmolality,Calculated 258 (280-300); Potassium 3.2 mEq/L (3.5-5.1); Sodium 125 mEq/L (136-145); eGFR For African Americans > 60 (> 60); eGFR For Non-African Americans > 60 (> 60)
[2021-11-14] MEDS: *HR* Enoxaparin 40 MG/0.4 ML SYRINGE SQ SCH (05:25)
[2021-11-14 07:46] VITALS: BP 145/78; PULSE 71; TEMP 98.9; O2SAT 92
[2021-11-14] MEDS: Isosorbide MONOnitrate (24 HR) 30 MG TAB.ER.24H PO SCH (08:53)
[2021-11-14] MEDS: amLODIPine 5 MG TABLET PO SCH (08:53)
== END 2021-11-14 10:43 | disposition left against medical advice (07) | DRG 177 ==
LOC: 3BNU 04:16 → EMEROOARM 04:16 → SUATTDRO 12:37 → 3BNU 13:37
PROVIDERS: ADMIT Hospitalist; ATTEND Family Medicine